=== PATIENT | female | born 1955 | race American Indian/Alaskan Native ===

== ENCOUNTER 2017-07-17 13:20 | Inpatient (IN) | payer OTHER ==
[2017-07-17] MEDS ORDERED: Sodium Chloride 0.9% 1,000 ML IV ONE ×2 (13:49→18:16)
[2017-07-17 14:21] LABS: BASO # 0.1 K/uL (0.0-0.2); BASO % 0.8 % (0.0-2.0); EOS % 0.1 % (0.0-4.0); HEMATOCRIT 40.9 % (34.0-47.0); LYMPH # 2.1 K/uL (1.0-4.3); LYMPH % 14.4 % (20.0-40.0); MEAN CORPUSCULAR HEMOGLOBIN 27.2 pg (27.0-31.0); MEAN CORPUSCULAR HGB CONC 32.8 g/dL (33.0-37.0); MEAN PLATELET VOLUME 9.3 fL (7.2-11.7); MONO # 1.2 K/uL (0.0-0.8); RED CELL DISTRIBUTION WIDTH 15.2 % (11.5-14.5); WHITE BLOOD COUNT 14.6 K/uL (4.8-10.8)
--- NOTE | 2017-07-17 14:26 | RAD ---
HISTORY: SOB COMPARISON: None available. TECHNIQUE: Chest, one view. FINDINGS: Examination limited by habitus. LUNGS: Hazy bilateral lower lobe opacities may reflect atelectasis or infiltrate. Please note that chest x-ray has limited sensitivity for the detection of pulmonary masses. PLEURA: No significant pleural effusion identified. No definite pneumothorax . CARDIOVASCULAR: Heart size appears within normal limits. Ectatic aorta. Atherosclerotic calcifications. OSSEOUS STRUCTURES: Degenerative changes. VISUALIZED UPPER ABDOMEN: Mild elevation of the left hemidiaphragm. OTHER FINDINGS: None. IMPRESSION: Soft tissue attenuation limits evaluation of the lower lobes. Hazy bilateral lower lobe opacities may reflect atelectasis or infiltrate.
[2017-07-17 14:28] LABS: CHLORIDE 99 mmol/L (98-107)
[2017-07-17 14:29] LABS: POTASSIUM 3.5 mmol/L (3.6-5.2); SODIUM 137 mmol/L (132-148)
[2017-07-17 14:31] LABS: GFR AFRICAN-AMERICAN > 60
[2017-07-17 14:32] LABS: ALB/GLOB RATIO 1.3 (1.0-2.1); ALKALINE PHOSPHATASE 116 U/L (38-126); ALT/SGPT 34 U/L (9-52); AST/SGOT 19 U/L (14-36); BILIRUBIN,TOTAL 0.9 mg/dL (0.2-1.3); BLOOD UREA NITROGEN 16 mg/dL (7-17); CALCIUM 9.3 mg/dl (8.6-10.4); CARBON DIOXIDE 25 mmol/L (22-30); GLUCOSE,RANDOM 197 mg/dL (65-105); TOTAL PROTEIN 7.4 g/dL (6.3-8.3)
[2017-07-17 14:33] LABS: ALCOHOL SERUM < 10 mg/dl (0-10); RBC URINE 65 /hpf (0-3); URINE BACTERIA FEW (<OCC); URINE BILIRUBIN NEGATIVE (NEGATIVE); URINE BLOOD 3+ (NEGATIVE); URINE COLOR Yellow (YELLOW); URINE GLUCOSE (UA) NORMAL (Normal); URINE KETONE NEGATIVE (NEGATIVE); URINE LEUKOCYTE ESTERASE NEG Leu/uL (Negative); URINE PROTEIN 2+ mg/dL (NEGATIVE); URINE UROBILINOGEN NORMAL mg/dL (0.2-1.0); WBC URINE 4 /hpf (0-5)
[2017-07-17] MEDS ORDERED: Sodium Chloride 0.9% 1,000 ML ONE (14:55)
[2017-07-17] MEDS ORDERED: cefTRIAXone IV 1 gm in Dextros 50 ML IV ONE (16:24)
[2017-07-17] MEDS ORDERED: Azithromycin 500 MG in Sodium Chloride 0.9% 250 ML IV STA (16:24)
--- NOTE | 2017-07-17 16:32 | C.PDOC ---
History Of Present Illness 61 y/o female presents to ED with c/o headache and cough for 2 days. Patient reports she smokes 1/2 pack per day. Also reports past history of poorly controlled DM. Otherwise, denies chest pain, shortness of breath, nausea, vomiting, diarrhea, or other associated symptoms. Time Seen by Provider: 07/17/17 13:41 Chief Complaint (Nursing): Headache History Per: Patient History/Exam Limitations: no limitations Onset/Duration Of Symptoms: Days (2) Current Symptoms Are (Timing): Still Present Associated Symptoms: denies: Fever, Chills, Chest Pain, Bloody Cough, Dizziness Recent travel outside of the [place]: No Past Medical History Reviewed: Historical Data, Nursing Documentation, Vital Signs Vital Signs: Last Vital Signs Temp 101.0 F H 07/17/17 13:27 Pulse 113 H 07/17/17 13:27 Resp 20 07/17/17 13:27 BP 149/90 07/17/17 13:27 Pulse Ox 92 L 07/17/17 16:32 - Medical History PMH: Anxiety, HTN Family History: States: Unknown Family Hx - Social History Hx Alcohol Use: No Hx Substance Use: No - Immunization History Hx Tetanus Toxoid Vaccination: No Hx Influenza Vaccination: No Hx Pneumococcal Vaccination: No Review Of Systems Except As Marked, All Systems Reviewed And Found Negative. Constitutional: Negative for: Fever, Chills Eyes: Negative for: Vision Change Respiratory: Positive for: Cough. Negative for: Shortness of Breath Gastrointestinal: Negative for: Nausea, Vomiting, Abdominal Pain Skin: Negative for: Rash Neurological: Positive for: Headache. Negative for: Dizziness Physical Exam - Physical Exam Appears: Non-toxic, Other (moderate distress) Skin: Warm, Dry Head: Atraumatic, Normacephalic Eye(s): bilateral: PERRL, EOMI, Other (no photophobia) Oral Mucosa: Moist Neck: Supple (no nuchal rigidity) Chest: Symmetrical Cardiovascular: Rhythm Regular Respiratory: No Rales, No Rhonchi, No Wheezing, Other (dry non-productive cough ; increased breath sounds left side) Gastrointestinal/Abdominal: Soft, No Tenderness, No Guarding, No Rebound Back: Normal Inspection Extremity: Normal ROM, Capillary Refill (< 2 sec.) Neurological/Psych: Oriented x3, Normal Speech, Normal Cognition ED Course And Treatment - Laboratory Results Result Diagrams: 07/17/17 14:16 07/17/17 14:16 Lab Interpretation: Abnormal ECG: Interpreted By Me ECG Rhythm: Sinus Tachycardia ECG Interpretation: Abnormal Rate From EC O2 Sat by Pulse Oximetry: 92 Pulse Ox Interpretation: Abnormal - Radiology CXR: Interpreted by Me CXR Interpretation: Yes: Infiltrates (+ Lingular/LLL PNA) - CT Scan/US CT Chest Other Rad Studies (CT/US): Interpreted By Me, Radiology Report Reviewed (LLL/ Lingular PNA) Progress Note: shivam KELLEY azithro Reevaluation Time: 16:30 Reassessment Condition: Improved - Physician Consult Information Outcome Of Conversation: 1630: d/w Dr. Donis- PMD- ok to Admit Medical Decision Making Medical Decision Making: poorly controlled DM, persistent smoker, LLL/Lingular PNA though pt c/o headache, LOW susp of meningitis as pt without photophobia nor nuchal rigidity. Defer LP at this time. Disposition Doctor Will See Patient In The: Hospital Counseled Patient/Family Regarding: Studies Performed, Diagnosis - Disposition Disposition: HOSPITALIZED Disposition Time: 16:31 Condition: GOOD - Clinical Impression Clinical Impression: Pneumonia - Scribe Statement The provider has reviewed the documentation as recorded by the Scribe SM All medical record entries made by the Scribe were at my direction and personally dictated by me. I have reviewed the chart and agree that the record accurately reflects my personal performance of the history, physical exam, medical decision making, and the department course for this patient. I have also personally directed, reviewed, and agree with the discharge instructions and disposition.
--- NOTE | 2017-07-17 16:35 | CT ---
PROCEDURE: CT chest dated 07/17/2017 HISTORY: Dated 07/17/2017. Cough and fever. Questionable lingular pneumonia. Smoker. COMPARISON: Comparison made with chest radiograph 07/17/2017 Ed 1424 hours. TECHNIQUE: Contiguous axial images were obtained through the chest without intravenous contrast enhancement. Sagittal and coronal reconstructions were performed. Radiation dose (DLP): 774.08 mGy-cm. This CT exam was performed using one or more of the following dose reduction techniques: Automated exposure control, adjustment of the mA and/or kV according to patient size, and/or use of iterative reconstruction technique. FINDINGS: LUNGS: Current study re- demonstrates to better advantage consolidation changes in the region of the inferior segment left upper lobe extending into the lingular region. Bibasilar atelectasis and or scarring also present. MEDIASTINUM: The heart appears mildly enlarged. No significant pericardial effusion. Multiple small to medium-sized mediastinal lymph nodes are present. Evaluation for hilar adenopathy is limited due to the lack of circulating intravenous contrast material. Central airways are midline and patent. There is a small hiatal hernia. Visualized upper abdominal structures unremarkable. PLEURA: No effusion or pneumothorax. BONES: Mild multilevel degenerative spondylosis of the thoracic spine. No acute compression deformities. UPPER ABDOMEN: Visualized upper abdominal structures unremarkable. OTHER FINDINGS: None. IMPRESSION: Left upper lobe infiltrate extending inferiorly into the lingular region. Findings may represent pneumonia. Bibasilar atelectasis and/or scarring. No evidence of effusion or pneumothorax.
[2017-07-17] MEDS ORDERED: cefTRIAXone IV 1 gm in Dextros 50 ML IVPB ONE (16:45)
[2017-07-17] MEDS ORDERED: Azithromycin 500mg/250ML NS 500 MG/250 ML BAG IVPB ONE (16:45)
[2017-07-17] MEDS ORDERED: LORAZEPAM PO PRN (17:29)
[2017-07-17] MEDS ORDERED: Sodium Chloride 0.45% 1,000 ML IV SCH (17:45)
[2017-07-17 18:00] LABS: ABG ALLEN TEST POS; DRAW SITE RRADIAL; HHB 10.7 % (0.0-5.0); METHEMOGLOBIN 1.3 % (0.0-3.0)
[2017-07-17] MEDS ORDERED: Potassium Chloride 20 mEq ER Tab PO ONE (18:00)
[2017-07-17] MEDS ORDERED: LORAZEPAM PO SCH (18:00)
--- NOTE | 2017-07-17 18:21 | PCM.RRT ---
<Briana Dahl V - Last Filed: 07/17/17 18:50> GROUP RESERVATIONS COORDINATOR Nurses Assessment - Situation GROUP RESERVATIONS COORDINATOR Responder Arrival Time: 18:10 GROUP RESERVATIONS COORDINATOR Reason for Call: Tachycardia, O2 Saturation below 90% GROUP RESERVATIONS COORDINATOR Called By: RN - IV IV Inserted during GROUP RESERVATIONS COORDINATOR?: No New IV Insertion Tolerance: Good - Respiratory Oxygen Delivery Method: Venturi Mask Received Nebulizer Treatments: No Was the Patient Ventilated with Bag/Mask 100% O2?: No Secretions Suctioned?: No Was the Patient Intubated?: No Was the Patient Placed on a Ventilator?: No - Diagnostic Test Ordered EKG: No (sinus tachycardia (earlier)) Chest X-Ray: No CT Scan: No (left upper pneumonia) - Stat Labs Ordered GROUP RESERVATIONS COORDINATOR Stat Labs Ordered: CBC, LACTIC ACID GROUP RESERVATIONS COORDINATOR Other Labs Ordered: Urine culture; CMP, VBG w shock CPR started during GROUP RESERVATIONS COORDINATOR?: No - [place] Coma Scale Coma Scale Eye Opening: To verbal stimuli - Sepsis Screen Part 1 Sepsis Screen Part 1: Temperature over 100.6F - Sepsis Screen Part 2 Sepsis Screen Part 2: WBC over 12,000 - Time GROUP RESERVATIONS COORDINATOR Ended Time GROUP RESERVATIONS COORDINATOR Ended: 18:41 - Recommendations 5) GROUP RESERVATIONS COORDINATOR Level of Care Recommendations: Transfer to Telemetry Notifications: Attending Physician, Family or Designated Caregiver I.Reason for GROUP RESERVATIONS COORDINATOR - A) Acute Change in Patient: (Select all that apply): Staff member or family is worried about patient, Acute change in SpO2 less (84%) - Neurological Status (Select all that apply): Alert, Responsive, Lethargic (mild; gotten Ativan and Tramadol in Ed) - Respiratory Oxygen Delivery Method: Venturi Mask @% - Constitutional Appears: Non-toxic, In Acute Distress - Head Head Exam: NORMAL INSPECTION - Eyes Eye Exam: EOMI - Respiratory Exam Respiratory Exam: Decreased Breath Sounds, Wheezes. absent: Stridor - Cardiovascular Exam Cardiovascular Exam: Tachycardia, +S1, +S2 - GI/Abdominal Exam GI & Abdominal Exam: Soft, Normal Bowel Sounds. absent: Distended, Firm, Guarding, Rigid, Tenderness, Rebound - Neurological Exam Neurological Exam: Alert, Awake, Oriented x3 (X1; speaks in Thai) Plan - Assessment of Findings&Treatment Plan Accompanied colleague Dr. Engel to GROUP RESERVATIONS COORDINATOR at 6:05PM. Ronnie Castelan ( ) Grandson: Everardo Tracey ([phone]) Past Medical Hx: Diabetes, Emphysema, Hypertension, denies stroke, denies [place] Grandchildren report patient had recent hospitalization about a year ago for pneumonia. Per discussion with granddaughter, her ambulance brought her in shortness of breathe and chest pain. in ED, patient received Rocephin and Azithromycin IV, given a fluid bolus in the ED, and dose of Ativan 1mg PO X1 and dose of Tramadol. VS: T: 103, BP: 167/78, SpO2:84 HR: 120 (on nasal cannula)-->oxygen improved to 97% on venti mask. General; Awake, alert, oriented, mild lethargic Heart: S1, S2, tachycardia Lung: Wheezing on exam, no observed stridor Abdomen: soft nontender, obese habitus reviewed CT chest: left upper lobe pneumonia EKG; sinus tachycardia in the GROUP RESERVATIONS COORDINATOR: 1 L fluid bolus ordered, Solumedrol 125mg IV X1, VBG shock: lactate 1.0-->code sepsis not called given normal lactate; order f/u lactate in 3 hours , ordered for CBC and CMP; on VBG: potassium is 2.5-->ordered for 2 additional KCL riders, and IV fluids 1/2 NS and KCL 20meEq 100cc/hr. Ordered for Monet, intake and output, and patient to be moved to telemetry for further monitoring. held Ativan/Texapam. My colleague, Dr Engel spoke with patient PMD: Dr. Donis who is aware and will see the patient. Put in order for telemetry for further monitoring. Discussed with patient's primary who is aware. <Jonn Engel - Last Filed: 07/17/17 19:04> Attending/Attestation - Attestation I have personally seen and examined this patient.: Yes I have fully participated in the care of the patient.: Yes I have reviewed all pertinent clinical information, including history, physical exam and plan: Yes Notes (Text): 07/17/17 19:00 Hospitalist: Patient was seen and examined by me. The GROUP RESERVATIONS COORDINATOR was called after it was noted that the SpO2 was low. The patient is currently admitted for pneumonia of the left upper lobe and it appears that while down in the ER also received pain medication as well as benzodiazipine. She was on a nonrebreather and then changed over to a venti mask with an improved SpO2 in the 95 to 96% area A vBG shock panel was done with a pH of 7.6 as well as a lactate of 1.0. Of note was a low K so we gave K replacement. On exam she does have some wheezing. Per discussion with family at bedside patient does smoke - for a long time. So will give solumedrol 125mg x1 dose as well. I spoke with the family at bedside as well as called the patient's PMD Patient to be moved to teleemtry for additional monitoring thank you Jonn Engel
[2017-07-17 18:28] LABS: VENOUS BLOOD GAS BASE EXCESS -6.6 mmol/L (0.0-2.0); VENOUS BLOOD GAS PCO2 27 mmHg (40-60)
[2017-07-17] MEDS ORDERED: POTASSIUM CH IV SCH (18:45)
[2017-07-17] MEDS ORDERED: D5W IV SCH (18:45)
[2017-07-17] MEDS ORDERED: SODIUM CHLORIDE IV SCH (18:45)
[2017-07-17 18:48] LABS: BASO # 0.1 K/uL (0.0-0.2); BASO % 0.4 % (0.0-2.0); HEMATOCRIT 37.4 % (34.0-47.0); LYMPH # 1.9 K/uL (1.0-4.3); LYMPH % 11.9 % (20.0-40.0); MEAN CORPUSCULAR HEMOGLOBIN 27.5 pg (27.0-31.0); MEAN CORPUSCULAR HGB CONC 33.5 g/dL (33.0-37.0); MEAN PLATELET VOLUME 9.5 fL (7.2-11.7); MONO # 1.5 K/uL (0.0-0.8); MONO % 9.1 % (0.0-10.0); WHITE BLOOD COUNT 16.3 K/uL (4.8-10.8)
[2017-07-17 18:55] LABS: CHLORIDE 101 mmol/L (98-107); SODIUM 133 mmol/L (132-148)
[2017-07-17 18:56] LABS: POTASSIUM 3.4 mmol/L (3.6-5.2)
[2017-07-17 18:58] LABS: ALB/GLOB RATIO 1.3 (1.0-2.1); ALKALINE PHOSPHATASE 102 U/L (38-126); ALT/SGPT 26 U/L (9-52); AST/SGOT 20 U/L (14-36); BILIRUBIN,TOTAL 0.8 mg/dL (0.2-1.3); BLOOD UREA NITROGEN 15 mg/dL (7-17); CALCIUM 8.4 mg/dl (8.6-10.4); CARBON DIOXIDE 23 mmol/L (22-30); GFR AFRICAN-AMERICAN > 60; GLUCOSE,RANDOM 148 mg/dL (65-105); TOTAL PROTEIN 6.9 g/dL (6.3-8.3)
[2017-07-17] MEDS: Albuterol-Ipratrop 3 mg / 0.5 (3 ml) UD INH SCH (19:29)
[2017-07-17] MEDS: Sodium Chloride 0.45% 1,000 ML IV SCH (20:20)
[2017-07-17] MEDS: (Novolin R) Insulin Human Regular 100 units/ml vial SC SCH (21:36)
[2017-07-17] MEDS ORDERED: TEMAZEPAM PO SCH (22:00)
--- NOTE | 2017-07-18 02:43 | HP ---
CHIEF COMPLAINT: Shortness of breath and headache. HISTORY OF PRESENT ILLNESS: This is a 61-year-old -[place] female well-known to me with history of diabetes, hypertension, hyperlipidemia, COPD. She smokes, she has been smoking for over 40 years, she still smokes caze-[id number]-zaa-day, and since Sunday she has been having cough, congestion, fever, headache, chills, rigors, body aches, tiredness, anorexia, malaise and fatigue. Her chest pain increases with coughing on the left side of the chest wall and according to her, she has blood in the sputum. She is weak, dizzy, tired and she has anorexia and malaise. The patient denies any polyuria, polydipsia. She denies any hematuria, pyuria. She denies any history of trauma or fall, loss of consciousness. She denies any seizure-like activity. She has generalized weakness. She denies any sneezing, itchy eyes, itchy nose. She denies any joint pains. She has insomnia. She has anxiety and at times she feels anxious and depressed. There is no history of joint pain. ALLERGIES: UNKNOWN. CURRENT MEDICATIONS AT HOME: Are; Ativan, Restoril, metformin, Dyazide, aspirin, gabapentin, Zocor, and Protonix. PAST MEDICAL HISTORY: COPD, diabetes, hypertension, hyperlipidemia, anxiety, depression and insomnia. SOCIAL HISTORY: Smokes. She denies drinking. FAMILY HISTORY: Negative for premature coronary artery disease. PHYSICAL EXAMINATION: GENERAL: An elderly female, in distress. She is weak, tired. VITAL SIGNS: Blood pressure is 136/83, pulse 108, respiratory rate 22 and temperature 102.1. SKIN: Dry/poor turgor. HEENT: Atraumatic and normocephalic. Negative pallor. Negative jaundice. Extraocular movements are intact. NECK: Supple. Flat neck veins. No JVD, no lymph node, no thyromegaly, no carotid bruit. CHEST: Chest wall bilateral symmetrical expansion. LUNGS: There are fine crackles in the entire left lung. ABDOMEN: Soft, nontender. Bowel sounds are positive. EXTREMITIES: No clubbing, cyanosis or edema. CENTRAL NERVOUS SYSTEM: Awake, alert, and oriented x3. Cranial nerves II through XII are normal. Power is 5/5 x4. ASSESSMENT: 1. Pneumonia, left-sided. 2. Dehydration. 3. Hypertension. 4. Diabetes. 5. Chronic obstructive pulmonary disease. PLAN: Admit. Detailed orders written. Seen and examined. Zeyad Donis MD
[2017-07-18] MEDS: Levothyroxine 125 MCG TAB PO SCH (05:51)
[2017-07-18] MEDS: guaiFENesin DM 200 mg-20 mg/10 ml UD PO PRN (05:54)
[2017-07-18 06:33] LABS: BASO # 0.1 K/uL (0.0-0.2); BASO % 0.7 % (0.0-2.0); HEMATOCRIT 37.7 % (34.0-47.0); LYMPH # 1.2 K/uL (1.0-4.3); LYMPH % 7.5 % (20.0-40.0); MEAN CELL VOLUME 83.8 fL (81.0-99.0); MEAN CORPUSCULAR HEMOGLOBIN 27.5 pg (27.0-31.0); MEAN CORPUSCULAR HGB CONC 32.8 g/dL (33.0-37.0); MEAN PLATELET VOLUME 10.4 fL (7.2-11.7); MONO # 0.5 K/uL (0.0-0.8); MONO % 3.4 % (0.0-10.0); PLATELET COUNT 170 K/uL (130-400); RED CELL DISTRIBUTION WIDTH 15.4 % (11.5-14.5)
[2017-07-18] MEDS: Albuterol-Ipratrop 3 mg / 0.5 (3 ml) UD INH SCH ×3 (07:52→19:16)
[2017-07-18 07:54] LABS: CHLORIDE 106 mmol/L (98-107); SODIUM 136 mmol/L (132-148)
[2017-07-18 07:56] LABS: THYROID STIMULATING HORMONE 0.11 mIU/L (0.46-4.68)
[2017-07-18 07:57] LABS: BLOOD UREA NITROGEN 17 mg/dL (7-17); CALCIUM 8.2 mg/dl (8.6-10.4); CARBON DIOXIDE 21 mmol/L (22-30); GFR AFRICAN-AMERICAN > 60; GLUCOSE,RANDOM 239 mg/dL (65-105)
[2017-07-18] MEDS: (Novolin R) Insulin Human Regular 100 units/ml vial SC SCH ×5 (08:31→21:59)
[2017-07-18 08:55] LABS: NEUTROPHIL 86 % (50-75); TOTAL CELLS COUNTED 100
[2017-07-18] MEDS: Sodium Chloride 0.45% 1,000 ML IV SCH ×2 (09:16→21:15)
[2017-07-18] MEDS: Enoxaparin 40 mg Syringe SC SCH (09:16)
[2017-07-18] MEDS ORDERED: METFORMIN HYDROCHLORIDE PO SCH (10:00)
[2017-07-18] MEDS ORDERED: Azithromycin 500 MG in Sodium Chloride 0.9% 250 ML IVPB SCH (10:00)
--- NOTE | 2017-07-18 15:25 | CP.PCM.CON ---
History of Present Illness - History of Present Illness History of Present Illness: Reason for consultation: Fever, shortness of breath and cough 61-year-old female with known history of smoking presented to emergency room with 3 day history of cough associated with fever and chills/headache. Patient stated she had EKG done for left sided chest discomfort recently also. CAT scan of the chest consistent with left upper lung infiltrate. Review of Systems - Review of Systems All systems: reviewed and no additional remarkable complaints except (Shortness of breath, cough and chills) Past Patient History - Past Medical History & Family History Past Medical History?: Yes - Past Social History Smoking Status: Light Smoker < 10 Cigarettes Daily - CARDIAC Hx Hypertension: Yes - ENDOCRINE/METABOLIC Hx Diabetes Mellitus Type 2: Yes - MUSCULOSKELETAL/RHEUMATOLOGICAL Hx Falls: No - PSYCHIATRIC Hx Anxiety: Yes Hx Substance Use: No - SURGICAL HISTORY Hx Surgeries: Yes Hx Hysterectomy: Yes - ANESTHESIA Hx Anesthesia: Yes Hx Anesthesia Reactions: No Meds Allergies/Adverse Reactions: Allergies Allergy/AdvReac Type Severity Reaction Status Date / Time Penicillins Allergy Verified 07/17/17 13:30 - Medications Medications: Current Medications Acetaminophen (Tylenol 325mg Tab) 650 mg PO Q6 PRN PRN Reason: Fever >100.4 F Last Admin: 07/17/17 19:04 Dose: 650 mg Albuterol/Ipratropium (Duoneb 3 Mg/0.5 Mg (3 Ml) Ud) 3 ml INH RQ6 [facility] Last Admin: 07/18/17 13:17 Dose: 3 ml Aspirin (Ecotrin) 81 mg PO DAILY [facility] Last Admin: 07/18/17 09:16 Dose: 81 mg Diphenhydramine HCl (Benadryl) 25 mg PO ONCE ONE Stop: 07/18/17 15:31 Enoxaparin Sodium (Lovenox) 40 mg SC DAILY [facility] Last Admin: 07/18/17 09:16 Dose: Not Given Guaifenesin/Dextromethorphan (Robitussin Dm) 10 ml PO Q4H PRN PRN Reason: Cough and congestion Last Admin: 07/18/17 05:54 Dose: 10 ml Sodium Chloride (Sodium Chloride 0.45%) 1,000 mls @ 80 mls/hr IV .[id number] [facility] Last Admin: 07/18/17 09:16 Dose: 80 mls/hr Ciprofloxacin (Cipro 200mg/100ml D5w) 100 mls @ 67 mls/hr IVPB Q12H [facility] Insulin Human Regular (Novolin R) 0 unit SC ACHS [facility] PRN Reason: Protocol Last Admin: 07/18/17 12:43 Dose: 4 unit Levothyroxine Sodium (Synthroid) 125 mcg PO DAILY@0630 [facility] Last Admin: 07/18/17 05:51 Dose: 125 mcg Metformin HCl (Glucophage) 500 mg PO BID [facility] Last Admin: 07/18/17 09:16 Dose: 500 mg Pantoprazole Sodium (Protonix Inj) 40 mg IVP DAILY [facility] Last Admin: 07/18/17 09:15 Dose: 40 mg Pneumococcal Polyvalent Vaccine (Pneumovax 23 Vaccine) 0.5 ml IM .ONCE ONE Stop: 07/19/17 10:01 Physical Exam - Head Exam Head Exam: ATRAUMATIC, NORMOCEPHALIC - Eye Exam Eye Exam: Normal appearance - ENT Exam ENT Exam: Mucous Membranes Moist - Respiratory Exam Respiratory Exam: Decreased Breath Sounds - Cardiovascular Exam Cardiovascular Exam: REGULAR RHYTHM - GI/Abdominal Exam GI & Abdominal Exam: Normal Bowel Sounds, Soft - Extremities Exam Extremities exam: Positive for: normal inspection - Neurological Exam Neurological exam: Alert, Oriented x3 Results - Vital Signs Recent Vital Signs: Last Vital Signs Temp 98 F 07/18/17 07:00 Pulse 79 07/18/17 07:00 Resp 20 07/18/17 07:00 BP 131/78 07/18/17 07:00 Pulse Ox 98 07/18/17 07:00 - Labs Result Diagrams: 07/18/17 06:18 07/18/17 06:18 Labs: Laboratory Results - last 24 hr 07/17/17 07/17/17 07/17/17 17:55 18:20 18:23 WBC RBC Hgb Hct MCV MCH MCHC RDW Plt Count MPV Neut % (Auto) Lymph % (Auto) [place] % (Auto) Eos % (Auto) Baso % (Auto) Neut # Lymph # [place] # Eos # Baso # Neutrophils % (Manual) Band Neutrophils % Lymphocytes % (Manual) Monocytes % (Manual) Platelet Estimate RBC Morphology Puncture Site Rradial pCO2 28 L pO2 46 L 31 HCO3 24.3 ABG pH 7.50 H ABG Total CO2 22.7 ABG O2 Saturation 88.8 L ABG Base Excess -0.4 ABG Hemoglobin 12.4 ABG Carboxyhemoglobin 3.0 H POC ABG HHb (Measured) 10.7 H ABG Methemoglobin 1.3 Fadi Test Pos VBG pH 7.40 VBG pCO2 27 L VBG HCO3 18.8 VBG Total CO2 17.5 L VBG O2 Sat (Calc) 68.5 H VBG Base Excess -6.6 L VBG Potassium 2.5 L* A-a O2 Difference 69.0 Respiratory Index 1.5 Hgb O2 Saturation 85.0 L Sodium 143.0 Chloride 115.0 H Glucose 110 H Lactate 1.0 FiO2 21.0 Crit Value Called To Dr annalee moya Crit Value Called By Carmella prado Crit Value Read Back Y Blood Gas Notified Time 1845 Potassium Carbon Dioxide Anion Gap BUN Creatinine Est GFR ( Amer) Est GFR (Non-Af Amer) POC Glucose (mg/dL) 171 H Random Glucose Hemoglobin A1c Lactic Acid Calcium Total Bilirubin AST ALT Alkaline Phosphatase Total Protein Albumin Globulin Albumin/Globulin Ratio TSH 3rd Generation Venous Blood Potassium 2.5 L* 07/17/17 07/17/17 07/17/17 18:41 18:41 21:33 WBC 16.3 H RBC 4.56 Hgb 12.5 Hct 37.4 MCV 82.0 MCH 27.5 MCHC 33.5 RDW 15.0 H Plt Count 182 MPV 9.5 Neut % (Auto) 78.6 H Lymph % (Auto) 11.9 L [place] % (Auto) 9.1 Eos % (Auto) 0.0 Baso % (Auto) 0.4 Neut # 12.8 H Lymph # 1.9 [place] # 1.5 H Eos # 0.0 Baso # 0.1 Neutrophils % (Manual) Band Neutrophils % Lymphocytes % (Manual) Monocytes % (Manual) Platelet Estimate RBC Morphology Puncture Site pCO2 pO2 HCO3 ABG pH ABG Total CO2 ABG O2 Saturation ABG Base Excess ABG Hemoglobin ABG Carboxyhemoglobin POC ABG HHb (Measured) ABG Methemoglobin Fadi Test VBG pH VBG pCO2 VBG HCO3 VBG Total CO2 VBG O2 Sat (Calc) VBG Base Excess VBG Potassium A-a O2 Difference Respiratory Index Hgb O2 Saturation Sodium 133 Chloride 101 Glucose Lactate FiO2 Crit Value Called To Crit Value Called By Crit Value Read Back Blood Gas Notified Time Potassium 3.4 L Carbon Dioxide 23 Anion Gap 12 BUN 15 Creatinine 1.1 Est GFR ( Amer) > 60 Est GFR (Non-Af Amer) 50 POC Glucose (mg/dL) 196 H Random Glucose 148 H Hemoglobin A1c Lactic Acid Calcium 8.4 L Total Bilirubin 0.8 AST 20 ALT 26 Alkaline Phosphatase 102 Total Protein 6.9 Albumin 3.8 Globulin 3.1 Albumin/Globulin Ratio 1.3 TSH 3rd Generation Venous Blood Potassium 07/17/17 07/18/17 07/18/17 21:40 06:09 06:18 WBC 16.0 H RBC 4.50 Hgb 12.4 Hct 37.7 MCV 83.8 MCH 27.5 MCHC 32.8 L RDW 15.4 H Plt Count 170 MPV 10.4 Neut % (Auto) 88.4 H Lymph % (Auto) 7.5 L [place] % (Auto) 3.4 Eos % (Auto) 0.0 Baso % (Auto) 0.7 Neut # 14.1 H Lymph # 1.2 [place] # 0.5 Eos # 0.0 Baso # 0.1 Neutrophils % (Manual) 86 H Band Neutrophils % 2 Lymphocytes % (Manual) 10 L Monocytes % (Manual) 2 Platelet Estimate Normal RBC Morphology Normal Puncture Site pCO2 pO2 HCO3 ABG pH ABG Total CO2 ABG O2 Saturation ABG Base Excess ABG Hemoglobin ABG Carboxyhemoglobin POC ABG HHb (Measured) ABG Methemoglobin Fadi Test VBG pH VBG pCO2 VBG HCO3 VBG Total CO2 VBG O2 Sat (Calc) VBG Base Excess VBG Potassium A-a O2 Difference Respiratory Index Hgb O2 Saturation Sodium Chloride Glucose Lactate FiO2 Crit Value Called To Crit Value Called By Crit Value Read Back Blood Gas Notified Time Potassium Carbon Dioxide Anion Gap BUN Creatinine Est GFR ( Amer) Est GFR (Non-Af Amer) POC Glucose (mg/dL) 250 H Random Glucose Hemoglobin A1c Lactic Acid 0.8 Calcium Total Bilirubin AST ALT Alkaline Phosphatase Total Protein Albumin Globulin Albumin/Globulin Ratio TSH 3rd Generation Venous Blood Potassium 07/18/17 07/18/17 07/18/17 06:18 06:18 11:52 WBC RBC Hgb Hct MCV MCH MCHC RDW Plt Count MPV Neut % (Auto) Lymph % (Auto) [place] % (Auto) Eos % (Auto) Baso % (Auto) Neut # Lymph # [place] # Eos # Baso # Neutrophils % (Manual) Band Neutrophils % Lymphocytes % (Manual) Monocytes % (Manual) Platelet Estimate RBC Morphology Puncture Site pCO2 pO2 HCO3 ABG pH ABG Total CO2 ABG O2 Saturation ABG Base Excess ABG Hemoglobin ABG Carboxyhemoglobin POC ABG HHb (Measured) ABG Methemoglobin Fadi Test VBG pH VBG pCO2 VBG HCO3 VBG Total CO2 VBG O2 Sat (Calc) VBG Base Excess VBG Potassium A-a O2 Difference Respiratory Index Hgb O2 Saturation Sodium 136 Chloride 106 Glucose Lactate FiO2 Crit Value Called To Crit Value Called By Crit Value Read Back Blood Gas Notified Time Potassium 4.0 Carbon Dioxide 21 L Anion Gap 13 BUN 17 Creatinine 1.0 Est GFR ( Amer) > 60 Est GFR (Non-Af Amer) 56 POC Glucose (mg/dL) 305 H Random Glucose 239 H Hemoglobin A1c 7.5 H Lactic Acid Calcium 8.2 L Total Bilirubin AST ALT Alkaline Phosphatase Total Protein Albumin Globulin Albumin/Globulin Ratio TSH 3rd Generation 0.11 L Venous Blood Potassium Assessment & Plan (1) Pneumonia Status: Acute Comment: CAT scan of the chest consistent with left upper lung infiltrate extending into the lingula. Patient with long history of smoking. IV antibiotics. If no resolution will consider bronchoscopy. Culture and sensitivity
[2017-07-18] MEDS ORDERED: Ciprofloxacin 200mg/100ml D5W 100 ML IVPB SCH (15:30)
[2017-07-18] MEDS: Aztreonam 1 GM in Sodium Chloride 0.9% 100 ML IVPB SCH ×2 (17:00→22:54)
[2017-07-18] MEDS: Azithromycin 500 MG in Sodium Chloride 0.9% 250 ML IVPB SCH (17:01)
--- NOTE | 2017-07-18 23:30 | CP.PCM.PN ---
Subjective - Date & Time of Evaluation Date of Evaluation: 07/18/17 - Subjective Subjective: NO FEVER, MORE ALERT, FEELS BETTER Objective - Vital Signs/Intake and Output Vital Signs (last 24 hours): Temp Pulse Resp BP Pulse Ox 97.6 F 89 20 145/83 97 07/18/17 15:00 07/18/17 20:30 07/18/17 15:00 07/18/17 20:30 07/18/17 15:00 Intake and Output: 07/18/17 07/19/17 18:59 06:59 Intake Total 820 1150 Output Total 300 Balance 520 1150 - Medications Medications: Current Medications Acetaminophen (Tylenol 325mg Tab) 650 mg PO Q6 PRN PRN Reason: Fever >100.4 F Last Admin: 07/17/17 19:04 Dose: 650 mg Albuterol/Ipratropium (Duoneb 3 Mg/0.5 Mg (3 Ml) Ud) 3 ml INH RQ6 [facility] Last Admin: 07/18/17 19:16 Dose: 3 ml Aspirin (Ecotrin) 81 mg PO DAILY [facility] Last Admin: 07/18/17 09:16 Dose: 81 mg Enoxaparin Sodium (Lovenox) 40 mg SC DAILY [facility] Last Admin: 07/18/17 09:16 Dose: Not Given Guaifenesin/Dextromethorphan (Robitussin Dm) 10 ml PO Q4H PRN PRN Reason: Cough and congestion Last Admin: 07/18/17 05:54 Dose: 10 ml Sodium Chloride (Sodium Chloride 0.45%) 1,000 mls @ 80 mls/hr IV .[id number] [facility] Last Admin: 07/18/17 21:15 Dose: Not Given Aztreonam 1 gm/ Sodium (Chloride) 100 mls @ 200 mls/hr IVPB Q8H [facility] Last Admin: 07/18/17 22:54 Dose: 200 mls/hr Azithromycin 500 mg/ Sodium (Chloride) 250 mls @ 250 mls/hr IVPB DAILY [facility] Last Admin: 07/18/17 17:01 Dose: 250 mls/hr Insulin Human Regular (Novolin R) 0 unit SC ACHS [facility] PRN Reason: Protocol Last Admin: 07/18/17 21:59 Dose: Not Given Levothyroxine Sodium (Synthroid) 125 mcg PO DAILY@0630 [facility] Last Admin: 07/18/17 05:51 Dose: 125 mcg Metformin HCl (Glucophage) 500 mg PO BID [facility] Last Admin: 07/18/17 17:02 Dose: 500 mg Pantoprazole Sodium (Protonix Inj) 40 mg IVP DAILY [facility] Last Admin: 07/18/17 09:15 Dose: 40 mg Pneumococcal Polyvalent Vaccine (Pneumovax 23 Vaccine) 0.5 ml IM .ONCE ONE Stop: 07/19/17 10:01 - Labs Labs: 07/18/17 06:18 07/18/17 06:18 - Constitutional Appears: Non-toxic, No Acute Distress - Head Exam Head Exam: ATRAUMATIC, NORMAL INSPECTION, NORMOCEPHALIC - Eye Exam Eye Exam: EOMI, Normal appearance Pupil Exam: NORMAL ACCOMODATION - ENT Exam ENT Exam: Mucous Membranes Moist, Normal Exam, Normal Oropharynx, TM's Normal Bilaterally - Respiratory Exam Respiratory Exam: Decreased Breath Sounds, Rales - Cardiovascular Exam Cardiovascular Exam: REGULAR RHYTHM, +S1, +S2 - GI/Abdominal Exam GI & Abdominal Exam: Soft, Normal Bowel Sounds - Rectal Exam Rectal Exam: NORMAL INSPECTION - Extremities Exam Extremities Exam: Normal Capillary Refill - Neurological Exam Neurological Exam: Alert, Awake, CN II-XII Intact, Normal Gait, Oriented x3 Neuro motor strength exam: Left Upper Extremity: 5, Right Upper Extremity: 5, Left Lower Extremity: 5, Right Lower Extremity: 5 - Psychiatric Exam Psychiatric exam: Normal Mood - Skin Skin Exam: Intact Assessment and Plan (1) COPD exacerbation Status: Acute (2) Hypertension Status: Chronic (3) Diabetes mellitus Status: Chronic (4) Pneumonia Status: Acute
[2017-07-19] MEDS: Albuterol-Ipratrop 3 mg / 0.5 (3 ml) UD INH SCH ×4 (01:39→19:04)
[2017-07-19] MEDS: Aztreonam 1 GM in Sodium Chloride 0.9% 100 ML IVPB SCH ×3 (06:56→23:48)
[2017-07-19] MEDS: Sodium Chloride 0.45% 1,000 ML IV SCH (06:57)
[2017-07-19] MEDS: guaiFENesin DM 200 mg-20 mg/10 ml UD PO PRN (07:03)
[2017-07-19] MEDS: Levothyroxine 125 MCG TAB PO SCH (07:03)
[2017-07-19 07:27] LABS: BASO # 0.1 K/uL (0.0-0.2); BASO % 0.5 % (0.0-2.0); EOS % 0.2 % (0.0-4.0); HEMATOCRIT 33.2 % (34.0-47.0); LYMPH # 2.8 K/uL (1.0-4.3); LYMPH % 18.4 % (20.0-40.0); MEAN CORPUSCULAR HEMOGLOBIN 27.4 pg (27.0-31.0); MEAN CORPUSCULAR HGB CONC 33.1 g/dL (33.0-37.0); MONO # 1.1 K/uL (0.0-0.8); MONO % 7.1 % (0.0-10.0); NRBC % 0.1 % (0.0-2.0); RED CELL DISTRIBUTION WIDTH 15.2 % (11.5-14.5); WHITE BLOOD COUNT 15.1 K/uL (4.8-10.8)
[2017-07-19 07:59] LABS: BLOOD UREA NITROGEN 18 mg/dL (7-17); CALCIUM 8.8 mg/dl (8.6-10.4); CARBON DIOXIDE 24 mmol/L (22-30); CHLORIDE 106 mmol/L (98-107); GFR AFRICAN-AMERICAN > 60; GLUCOSE,RANDOM 143 mg/dL (65-105); POTASSIUM 3.8 mmol/L (3.6-5.2); SODIUM 140 mmol/L (132-148)
[2017-07-19] MEDS: (Novolin R) Insulin Human Regular 100 units/ml vial SC SCH ×4 (08:35→21:48)
[2017-07-19] MEDS: Azithromycin 500 MG in Sodium Chloride 0.9% 250 ML IVPB SCH (09:14)
[2017-07-19] MEDS: Enoxaparin 40 mg Syringe SC SCH ×2 (09:14→09:19)
[2017-07-19] MEDS ORDERED: Pneumococcal 23-Valent Vaccine IM ONE (10:00)
--- NOTE | 2017-07-19 15:31 | CP.PCM.PN ---
Subjective - Date & Time of Evaluation Date of Evaluation: 07/19/17 Time of Evaluation: 10:30 - Subjective Subjective: patient seen and examined. Cough and shortness of breath improving Afebrile Denies any chest pain Objective - Vital Signs/Intake and Output Vital Signs (last 24 hours): Temp Pulse Resp BP Pulse Ox 98.4 F 80 18 158/89 H 97 07/19/17 07:50 07/19/17 10:37 07/19/17 07:50 07/19/17 07:50 07/19/17 07:50 Intake and Output: 07/19/17 07/19/17 06:59 18:59 Intake Total 2030 Balance 2030 - Medications Medications: Current Medications Acetaminophen (Tylenol 325mg Tab) 650 mg PO Q6 PRN PRN Reason: Fever >100.4 F Last Admin: 07/17/17 19:04 Dose: 650 mg Albuterol/Ipratropium (Duoneb 3 Mg/0.5 Mg (3 Ml) Ud) 3 ml INH RQ6 [facility] Last Admin: 07/19/17 14:06 Dose: 3 ml Aspirin (Ecotrin) 81 mg PO DAILY [facility] Last Admin: 07/19/17 09:14 Dose: 81 mg Enoxaparin Sodium (Lovenox) 40 mg SC DAILY [facility] Last Admin: 07/19/17 09:19 Dose: Not Given Guaifenesin/Dextromethorphan (Robitussin Dm) 10 ml PO Q4H PRN PRN Reason: Cough and congestion Last Admin: 07/19/17 07:03 Dose: 10 ml Aztreonam 1 gm/ Sodium (Chloride) 100 mls @ 200 mls/hr IVPB Q8H [facility] Last Admin: 07/19/17 15:22 Dose: 200 mls/hr Azithromycin 500 mg/ Sodium (Chloride) 250 mls @ 250 mls/hr IVPB DAILY [facility] Last Admin: 07/19/17 09:14 Dose: 250 mls/hr Insulin Human Regular (Novolin R) 0 unit SC ACHS [facility] PRN Reason: Protocol Last Admin: 07/19/17 12:23 Dose: Not Given Levothyroxine Sodium (Synthroid) 125 mcg PO DAILY@0630 [facility] Last Admin: 07/19/17 07:03 Dose: 125 mcg Lorazepam (Ativan) 1 mg PO BID PRN PRN Reason: Anxiety Last Admin: 07/19/17 15:28 Dose: 1 mg Metformin HCl (Glucophage) 500 mg PO BID [facility] Last Admin: 07/19/17 09:13 Dose: 500 mg Pantoprazole Sodium (Protonix Inj) 40 mg IVP DAILY [facility] Last Admin: 07/19/17 09:14 Dose: 40 mg - Labs Labs: 07/19/17 07:16 07/19/17 07:16 - Head Exam Head Exam: ATRAUMATIC, NORMOCEPHALIC - Eye Exam Eye Exam: Normal appearance - ENT Exam ENT Exam: Mucous Membranes Moist - Neck Exam Neck Exam: Full ROM, Normal Inspection - Cardiovascular Exam Cardiovascular Exam: REGULAR RHYTHM - GI/Abdominal Exam GI & Abdominal Exam: Soft, Normal Bowel Sounds - Extremities Exam Extremities Exam: Full ROM, Normal Inspection - Neurological Exam Neurological Exam: Alert, Oriented x3 Assessment and Plan (1) Pneumonia Assessment & Plan: continue IV antibiotics and followup chest x-ray Continue nebulizer treatment Patient advised to stop smoking Status: Acute
--- NOTE | 2017-07-19 18:22 | CARD ---
APPROVED REPORT EKG Measurement Heart [id number] <Conclusion> Sinus tachycardia Cannot rule out Anterior infarct, age undetermined Abnormal ECG
[2017-07-19] MEDS: hydroCHLOROthiazide-Triamterene 25 mg-37.5 mg Cap UD PO SCH (18:31)
--- NOTE | 2017-07-19 22:40 | CP.PCM.PN ---
Subjective - Date & Time of Evaluation Date of Evaluation: 07/19/17 - Subjective Subjective: FEELS BETTER, NO FEVER, NO SOB, COUGH PRESENT, NO NAUSEA Objective - Vital Signs/Intake and Output Vital Signs (last 24 hours): Temp Pulse Resp BP Pulse Ox 97.5 F L 77 20 158/85 H 96 07/19/17 16:12 07/19/17 16:12 07/19/17 16:12 07/19/17 16:12 07/19/17 16:12 - Medications Medications: Current Medications Acetaminophen (Tylenol 325mg Tab) 650 mg PO Q6 PRN PRN Reason: Fever >100.4 F Last Admin: 07/17/17 19:04 Dose: 650 mg Albuterol/Ipratropium (Duoneb 3 Mg/0.5 Mg (3 Ml) Ud) 3 ml INH RQ6 [facility] Last Admin: 07/19/17 19:04 Dose: 3 ml Aspirin (Ecotrin) 81 mg PO DAILY [facility] Last Admin: 07/19/17 09:14 Dose: 81 mg Enoxaparin Sodium (Lovenox) 40 mg SC DAILY [facility] Last Admin: 07/19/17 09:19 Dose: Not Given Guaifenesin/Dextromethorphan (Robitussin Dm) 10 ml PO Q4H PRN PRN Reason: Cough and congestion Last Admin: 07/19/17 07:03 Dose: 10 ml Aztreonam 1 gm/ Sodium (Chloride) 100 mls @ 200 mls/hr IVPB Q8H [facility] Last Admin: 07/19/17 15:22 Dose: 200 mls/hr Azithromycin 500 mg/ Sodium (Chloride) 250 mls @ 250 mls/hr IVPB DAILY [facility] Last Admin: 07/19/17 09:14 Dose: 250 mls/hr Insulin Human Regular (Novolin R) 0 unit SC ACHS [facility] PRN Reason: Protocol Last Admin: 07/19/17 21:48 Dose: Not Given Levothyroxine Sodium (Synthroid) 125 mcg PO DAILY@0630 [facility] Last Admin: 07/19/17 07:03 Dose: 125 mcg Lorazepam (Ativan) 1 mg PO BID PRN PRN Reason: Anxiety Last Admin: 07/19/17 15:28 Dose: 1 mg Metformin HCl (Glucophage) 500 mg PO BID [facility] Last Admin: 07/19/17 18:09 Dose: 500 mg Pantoprazole Sodium (Protonix Inj) 40 mg IVP DAILY [facility] Last Admin: 07/19/17 09:14 Dose: 40 mg Temazepam (Restoril) 30 mg PO HS PRN PRN Reason: Insomnia Triamterene/HCTZ (Dyazide 25 Mg-37.5 Mg) 1 cap PO DAILY [facility] Last Admin: 07/19/17 18:31 Dose: 1 cap - Labs Labs: 07/19/17 07:16 07/19/17 07:16 - Constitutional Appears: Non-toxic, No Acute Distress - Head Exam Head Exam: ATRAUMATIC, NORMAL INSPECTION, NORMOCEPHALIC - Eye Exam Eye Exam: EOMI, Normal appearance, PERRL Pupil Exam: NORMAL ACCOMODATION - ENT Exam ENT Exam: Mucous Membranes Moist, Normal Exam, Normal Oropharynx, TM's Normal Bilaterally - Neck Exam Neck Exam: Normal Inspection - Respiratory Exam Respiratory Exam: Decreased Breath Sounds, Rales, Rhonchi - Cardiovascular Exam Cardiovascular Exam: REGULAR RHYTHM, +S1, +S2 - GI/Abdominal Exam GI & Abdominal Exam: Soft, Normal Bowel Sounds - Extremities Exam Extremities Exam: Normal Capillary Refill, Normal Inspection - Neurological Exam Neurological Exam: Alert, Awake, CN II-XII Intact, Normal Gait, Oriented x3 Neuro motor strength exam: Left Upper Extremity: 5, Right Upper Extremity: 5, Left Lower Extremity: 5, Right Lower Extremity: 5 - Psychiatric Exam Psychiatric exam: Anxious, Flat Affect - Skin Skin Exam: Intact Assessment and Plan (1) COPD exacerbation Status: Acute (2) Hypertension Status: Chronic (3) Diabetes mellitus Status: Chronic (4) Pneumonia Status: Acute
[2017-07-20] MEDS: Albuterol-Ipratrop 3 mg / 0.5 (3 ml) UD INH SCH ×4 (01:02→19:13)
[2017-07-20] MEDS: guaiFENesin DM 200 mg-20 mg/10 ml UD PO PRN ×2 (06:21→20:43)
[2017-07-20] MEDS: Levothyroxine 125 MCG TAB PO SCH (06:21)
[2017-07-20] MEDS: Aztreonam 1 GM in Sodium Chloride 0.9% 100 ML IVPB SCH ×3 (06:49→23:04)
[2017-07-20] MEDS: (Novolin R) Insulin Human Regular 100 units/ml vial SC SCH ×4 (07:25→22:00)
[2017-07-20] MEDS: Enoxaparin 40 mg Syringe SC SCH (10:47)
[2017-07-20] MEDS: Azithromycin 500 MG in Sodium Chloride 0.9% 250 ML IVPB SCH (10:47)
[2017-07-20] MEDS: hydroCHLOROthiazide-Triamterene 25 mg-37.5 mg Cap UD PO SCH (11:08)
--- NOTE | 2017-07-20 16:11 | CP.PCM.PN ---
Objective - Vital Signs/Intake and Output Vital Signs (last 24 hours): Temp Pulse Resp BP Pulse Ox 98.9 F 101 H 22 173/84 H 95 07/20/17 08:43 07/20/17 08:43 07/20/17 08:43 07/20/17 08:43 07/20/17 08:43 - Medications Medications: Current Medications Acetaminophen (Tylenol 325mg Tab) 650 mg PO Q6 PRN PRN Reason: Fever >100.4 F Last Admin: 07/17/17 19:04 Dose: 650 mg Albuterol/Ipratropium (Duoneb 3 Mg/0.5 Mg (3 Ml) Ud) 3 ml INH RQ6 [facility] Last Admin: 07/20/17 13:28 Dose: 3 ml Aspirin (Ecotrin) 81 mg PO DAILY [facility] Last Admin: 07/20/17 10:46 Dose: 81 mg Enoxaparin Sodium (Lovenox) 40 mg SC DAILY [facility] Last Admin: 07/20/17 10:47 Dose: Not Given Guaifenesin/Dextromethorphan (Robitussin Dm) 10 ml PO Q4H PRN PRN Reason: Cough and congestion Last Admin: 07/20/17 06:21 Dose: 10 ml Aztreonam 1 gm/ Sodium (Chloride) 100 mls @ 200 mls/hr IVPB Q8H [facility] Last Admin: 07/20/17 06:49 Dose: 200 mls/hr Azithromycin 500 mg/ Sodium (Chloride) 250 mls @ 250 mls/hr IVPB DAILY [facility] Last Admin: 07/20/17 10:47 Dose: 250 mls/hr Insulin Human Regular (Novolin R) 0 unit SC ACHS [facility] PRN Reason: Protocol Last Admin: 07/20/17 12:14 Dose: Not Given Levothyroxine Sodium (Synthroid) 125 mcg PO DAILY@0630 [facility] Last Admin: 07/20/17 06:21 Dose: 125 mcg Lorazepam (Ativan) 1 mg PO BID PRN PRN Reason: Anxiety Last Admin: 07/19/17 15:28 Dose: 1 mg Metformin HCl (Glucophage) 500 mg PO BID [facility] Last Admin: 07/20/17 10:45 Dose: 500 mg Pantoprazole Sodium (Protonix Inj) 40 mg IVP DAILY [facility] Last Admin: 07/20/17 10:46 Dose: 40 mg Temazepam (Restoril) 30 mg PO HS PRN PRN Reason: Insomnia Last Admin: 07/19/17 23:55 Dose: 30 mg Triamterene/HCTZ (Dyazide 25 Mg-37.5 Mg) 1 cap PO DAILY [facility] Last Admin: 07/20/17 11:08 Dose: 1 cap - Labs Labs: 07/19/17 07:16 07/19/17 07:16 Assessment and Plan (1) Pneumonia Status: Acute
[2017-07-20 16:26] VITALS: RESP 20
[2017-07-21] MEDS: Albuterol-Ipratrop 3 mg / 0.5 (3 ml) UD INH SCH ×4 (01:05→20:05)
[2017-07-21] MEDS: Levothyroxine 125 MCG TAB PO SCH (05:58)
[2017-07-21 06:37] LABS: BASO % 0.3 % (0.0-2.0); EOS # 0.5 K/uL (0.0-0.7); EOS % 4.3 % (0.0-4.0); HEMATOCRIT 37.4 % (34.0-47.0); LYMPH # 3.3 K/uL (1.0-4.3); LYMPH % 30.3 % (20.0-40.0); MEAN CELL VOLUME 82.8 fL (81.0-99.0); MEAN CORPUSCULAR HEMOGLOBIN 27.6 pg (27.0-31.0); MEAN CORPUSCULAR HGB CONC 33.3 g/dL (33.0-37.0); MEAN PLATELET VOLUME 9.4 fL (7.2-11.7); MONO # 1.5 K/uL (0.0-0.8); MONO % 13.7 % (0.0-10.0); RED CELL DISTRIBUTION WIDTH 15.2 % (11.5-14.5); WHITE BLOOD COUNT 10.8 K/uL (4.8-10.8)
[2017-07-21] MEDS: Aztreonam 1 GM in Sodium Chloride 0.9% 100 ML IVPB SCH ×3 (06:54→23:04)
[2017-07-21] MEDS: guaiFENesin DM 200 mg-20 mg/10 ml UD PO PRN (06:59)
[2017-07-21] MEDS: (Novolin R) Insulin Human Regular 100 units/ml vial SC SCH ×4 (07:21→22:17)
[2017-07-21 07:29] LABS: BLOOD UREA NITROGEN 16 mg/dL (7-17); CALCIUM 9.2 mg/dl (8.6-10.4); CARBON DIOXIDE 26 mmol/L (22-30); CHLORIDE 103 mmol/L (98-107); GFR AFRICAN-AMERICAN > 60; GLUCOSE,RANDOM 112 mg/dL (65-105); POTASSIUM 4.2 mmol/L (3.6-5.2); SODIUM 140 mmol/L (132-148)
[2017-07-21] MEDS: hydroCHLOROthiazide-Triamterene 25 mg-37.5 mg Cap UD PO SCH (09:19)
[2017-07-21] MEDS: Enoxaparin 40 mg Syringe SC SCH (09:19)
[2017-07-21] MEDS: Azithromycin 500 MG in Sodium Chloride 0.9% 250 ML IVPB SCH (09:39)
--- NOTE | 2017-07-21 13:19 | RAD ---
HISTORY: R/O PNEUMOIA COMPARISON: 07/17/2017 TECHNIQUE: Chest PA and lateral FINDINGS: LUNGS: Left basilar infiltrate, likely lingular. PLEURA: No significant pleural effusion identified. No pneumothorax apparent. CARDIOVASCULAR: Normal. OSSEOUS STRUCTURES: No significant abnormalities. VISUALIZED UPPER ABDOMEN: Normal. OTHER FINDINGS: None. IMPRESSION: Lingular infiltrate, minimally improved from 07/17/2017.
--- NOTE | 2017-07-22 00:05 | CP.PCM.PN ---
Subjective - Date & Time of Evaluation Date of Evaluation: 07/20/17 - Subjective Subjective: COUGH, L POST CHEST PAIN, NO SOB Objective - Vital Signs/Intake and Output Vital Signs (last 24 hours): Temp Pulse Resp BP Pulse Ox 97.8 F 78 20 160/85 H 96 07/21/17 15:00 07/21/17 15:00 07/21/17 15:00 07/21/17 15:00 07/21/17 15:00 Intake and Output: 07/21/17 07/22/17 18:59 06:59 Intake Total 350 Balance 350 - Medications Medications: Current Medications Acetaminophen (Tylenol 325mg Tab) 650 mg PO Q6 PRN PRN Reason: Fever >100.4 F Last Admin: 07/17/17 19:04 Dose: 650 mg Acetaminophen (Tylenol 325mg Tab) 650 mg PO Q4 PRN PRN Reason: pain Last Admin: 07/21/17 18:18 Dose: 650 mg Albuterol/Ipratropium (Duoneb 3 Mg/0.5 Mg (3 Ml) Ud) 3 ml INH RQ6 [facility] Last Admin: 07/21/17 20:05 Dose: 3 ml Aspirin (Ecotrin) 81 mg PO DAILY [facility] Last Admin: 07/21/17 09:19 Dose: 81 mg Enoxaparin Sodium (Lovenox) 40 mg SC DAILY [facility] Last Admin: 07/21/17 09:19 Dose: Not Given Guaifenesin/Dextromethorphan (Robitussin Dm) 10 ml PO Q4H PRN PRN Reason: Cough and congestion Last Admin: 07/21/17 06:59 Dose: 10 ml Aztreonam 1 gm/ Sodium (Chloride) 100 mls @ 200 mls/hr IVPB Q8H [facility] Last Admin: 07/21/17 23:04 Dose: 200 mls/hr Azithromycin 500 mg/ Sodium (Chloride) 250 mls @ 250 mls/hr IVPB DAILY [facility] Last Admin: 07/21/17 09:39 Dose: 250 mls/hr Insulin Human Regular (Novolin R) 0 unit SC ACHS [facility] PRN Reason: Protocol Last Admin: 07/21/17 22:17 Dose: Not Given Levothyroxine Sodium (Synthroid) 125 mcg PO DAILY@0630 [facility] Last Admin: 07/21/17 05:58 Dose: 125 mcg Lorazepam (Ativan) 1 mg PO BID PRN PRN Reason: Anxiety Last Admin: 07/19/17 15:28 Dose: 1 mg Metformin HCl (Glucophage) 500 mg PO BID [facility] Last Admin: 07/21/17 18:16 Dose: 500 mg Pantoprazole Sodium (Protonix Inj) 40 mg IVP DAILY [facility] Last Admin: 07/21/17 09:19 Dose: 40 mg Temazepam (Restoril) 30 mg PO HS PRN PRN Reason: Insomnia Last Admin: 07/21/17 23:15 Dose: 30 mg Triamterene/HCTZ (Dyazide 25 Mg-37.5 Mg) 1 cap PO DAILY [facility] Last Admin: 07/21/17 09:19 Dose: 1 cap - Labs Labs: 07/21/17 06:18 07/21/17 06:18 - Constitutional Appears: Non-toxic, No Acute Distress - Head Exam Head Exam: ATRAUMATIC, NORMAL INSPECTION, NORMOCEPHALIC - Eye Exam Eye Exam: EOMI, Normal appearance, PERRL Pupil Exam: NORMAL ACCOMODATION - ENT Exam ENT Exam: Mucous Membranes Moist, Normal Exam, Normal Oropharynx, TM's Normal Bilaterally - Neck Exam Neck Exam: Normal Inspection - Respiratory Exam Respiratory Exam: Rales, NORMAL BREATHING PATTERN - Cardiovascular Exam Cardiovascular Exam: REGULAR RHYTHM, +S1, +S2 - GI/Abdominal Exam GI & Abdominal Exam: Soft, Normal Bowel Sounds - Extremities Exam Extremities Exam: Normal Capillary Refill - Neurological Exam Neurological Exam: Alert, Awake, CN II-XII Intact, Normal Gait, Oriented x3 - Psychiatric Exam Psychiatric exam: Normal Mood - Skin Skin Exam: Intact Assessment and Plan (1) COPD exacerbation Status: Acute (2) Hypertension Status: Chronic (3) Diabetes mellitus Status: Chronic (4) Pneumonia Assessment & Plan: CONTINUE ANTIBIOTICS Status: Acute
--- NOTE | 2017-07-22 00:06 | CP.PCM.PN ---
Subjective - Date & Time of Evaluation Date of Evaluation: 07/21/17 - Subjective Subjective: COUGH, L POSTERIOR CHEST PAIN, NO SOB, NO NAUSEA, Objective - Vital Signs/Intake and Output Vital Signs (last 24 hours): Temp Pulse Resp BP Pulse Ox 97.8 F 78 20 160/85 H 96 07/21/17 15:00 07/21/17 15:00 07/21/17 15:00 07/21/17 15:00 07/21/17 15:00 Intake and Output: 07/21/17 07/22/17 18:59 06:59 Intake Total 350 Balance 350 - Medications Medications: Current Medications Acetaminophen (Tylenol 325mg Tab) 650 mg PO Q6 PRN PRN Reason: Fever >100.4 F Last Admin: 07/17/17 19:04 Dose: 650 mg Acetaminophen (Tylenol 325mg Tab) 650 mg PO Q4 PRN PRN Reason: pain Last Admin: 07/21/17 18:18 Dose: 650 mg Albuterol/Ipratropium (Duoneb 3 Mg/0.5 Mg (3 Ml) Ud) 3 ml INH RQ6 [facility] Last Admin: 07/21/17 20:05 Dose: 3 ml Aspirin (Ecotrin) 81 mg PO DAILY [facility] Last Admin: 07/21/17 09:19 Dose: 81 mg Enoxaparin Sodium (Lovenox) 40 mg SC DAILY [facility] Last Admin: 07/21/17 09:19 Dose: Not Given Guaifenesin/Dextromethorphan (Robitussin Dm) 10 ml PO Q4H PRN PRN Reason: Cough and congestion Last Admin: 07/21/17 06:59 Dose: 10 ml Aztreonam 1 gm/ Sodium (Chloride) 100 mls @ 200 mls/hr IVPB Q8H [facility] Last Admin: 07/21/17 23:04 Dose: 200 mls/hr Azithromycin 500 mg/ Sodium (Chloride) 250 mls @ 250 mls/hr IVPB DAILY [facility] Last Admin: 07/21/17 09:39 Dose: 250 mls/hr Insulin Human Regular (Novolin R) 0 unit SC ACHS [facility] PRN Reason: Protocol Last Admin: 07/21/17 22:17 Dose: Not Given Levothyroxine Sodium (Synthroid) 125 mcg PO DAILY@0630 [facility] Last Admin: 07/21/17 05:58 Dose: 125 mcg Lorazepam (Ativan) 1 mg PO BID PRN PRN Reason: Anxiety Last Admin: 07/19/17 15:28 Dose: 1 mg Metformin HCl (Glucophage) 500 mg PO BID [facility] Last Admin: 07/21/17 18:16 Dose: 500 mg Pantoprazole Sodium (Protonix Inj) 40 mg IVP DAILY [facility] Last Admin: 07/21/17 09:19 Dose: 40 mg Temazepam (Restoril) 30 mg PO HS PRN PRN Reason: Insomnia Last Admin: 07/21/17 23:15 Dose: 30 mg Triamterene/HCTZ (Dyazide 25 Mg-37.5 Mg) 1 cap PO DAILY [facility] Last Admin: 07/21/17 09:19 Dose: 1 cap - Labs Labs: 07/21/17 06:18 07/21/17 06:18 - Constitutional Appears: Non-toxic, No Acute Distress - Head Exam Head Exam: ATRAUMATIC, NORMAL INSPECTION, NORMOCEPHALIC - Eye Exam Eye Exam: Normal appearance Pupil Exam: NORMAL ACCOMODATION - ENT Exam ENT Exam: Mucous Membranes Moist, Normal Exam - Neck Exam Neck Exam: Normal Inspection - Respiratory Exam Respiratory Exam: Decreased Breath Sounds, Rales - Cardiovascular Exam Cardiovascular Exam: REGULAR RHYTHM, +S1, +S2 - GI/Abdominal Exam GI & Abdominal Exam: Soft, Normal Bowel Sounds - Rectal Exam Rectal Exam: NORMAL INSPECTION - Extremities Exam Extremities Exam: Normal Capillary Refill - Neurological Exam Neurological Exam: Alert, Awake, CN II-XII Intact, Normal Gait, Oriented x3 - Psychiatric Exam Psychiatric exam: Normal Mood - Skin Skin Exam: Intact Assessment and Plan (1) COPD exacerbation Status: Acute (2) Hypertension Status: Chronic (3) Diabetes mellitus Status: Chronic (4) Pneumonia Status: Acute
[2017-07-22] MEDS: Albuterol-Ipratrop 3 mg / 0.5 (3 ml) UD INH SCH ×4 (01:11→19:37)
[2017-07-22] MEDS: Levothyroxine 125 MCG TAB PO SCH (05:55)
[2017-07-22] MEDS: Aztreonam 1 GM in Sodium Chloride 0.9% 100 ML IVPB SCH ×3 (06:45→23:06)
[2017-07-22] MEDS: (Novolin R) Insulin Human Regular 100 units/ml vial SC SCH ×4 (07:22→21:30)
[2017-07-22] MEDS: Azithromycin 500 MG in Sodium Chloride 0.9% 250 ML IVPB SCH (09:51)
[2017-07-22] MEDS: hydroCHLOROthiazide-Triamterene 25 mg-37.5 mg Cap UD PO SCH (09:51)
[2017-07-22] MEDS: Enoxaparin 40 mg Syringe SC SCH (09:52)
--- NOTE | 2017-07-22 10:57 | CARD ---
APPROVED REPORT EXAM: Two-dimensional and M-mode echocardiogram with Doppler and color Doppler. Other Information Quality : GoodRhythm : NSR INDICATION Pericardial Effusion Systolic RISK FACTORS Hypertension Diabetes 2D DIMENSIONS IVSd1.1 (0.7-1.1cm)LVDd4.6 (3.9-5.9cm) PWd1.0 (0.7-1.1cm)LVDs3.1 (2.5-4.0cm) FS (%) 33.1 %LVEF (%)61.8 (>50%) M-Mode DIMENSIONS Left Atrium (MM)3.88 (2.5-4.0cm)Aortic Root2.90 (2.2-3.7cm) Aortic Cusp Exc.1.91 (1.5-2.0cm) Mitral Valve MV E Uozgoyay04.0cm/sMV A Fnjfquwd261.4cm/sE/A ratio0.7 TDI E/Lateral E'0.0E/Medial E'0.0 Tricuspid Valve TR Peak [id number]/sTR Peak [id number] <Conclusion> Left ventricle: thickness: normal; size: normal; overall ejection fraction: 60%: diastolic filling pressures: normal Mitral valve: annulus: normal: leaflets: normal: excursion: normal; no significant trans-mitral gradient: no significant incompetence: left atrium: normal Aortic valve: leaflets: normal: excursion: normal; no significant trans-aortic gradient:tracet incompetence: aortic root: normal Right sided Structures: Pulmonary valve: normal; no significant incompetence; Tricuspid valve: normal; mild incompetence: Intra-cardiac hemodynamics: pulmonary systolic pressures:50mmHg; central venous pressures: normal No pericardial effusion
--- NOTE | 2017-07-22 11:06 | CP.PCM.PN ---
Subjective - Date & Time of Evaluation Date of Evaluation: 07/22/17 Time of Evaluation: 09:00 - Subjective Subjective: Patient seen and examined. Sitting comfortably in no acute distress Patient is able to walk without shortness of breath Chest x-ray showed slight improvement Afebrile Objective - Vital Signs/Intake and Output Vital Signs (last 24 hours): Temp Pulse Resp BP Pulse Ox 98.3 F 77 20 135/82 96 07/22/17 07:10 07/22/17 07:10 07/22/17 07:10 07/22/17 07:10 07/22/17 07:10 Intake and Output: 07/22/17 07/22/17 06:59 18:59 Intake Total 350 Balance 350 - Medications Medications: Current Medications Acetaminophen (Tylenol 325mg Tab) 650 mg PO Q6 PRN PRN Reason: Fever >100.4 F Last Admin: 07/17/17 19:04 Dose: 650 mg Acetaminophen (Tylenol 325mg Tab) 650 mg PO Q4 PRN PRN Reason: pain Last Admin: 07/21/17 18:18 Dose: 650 mg Albuterol/Ipratropium (Duoneb 3 Mg/0.5 Mg (3 Ml) Ud) 3 ml INH RQ6 [facility] Last Admin: 07/22/17 07:27 Dose: 3 ml Aspirin (Ecotrin) 81 mg PO DAILY [facility] Last Admin: 07/22/17 09:51 Dose: 81 mg Enoxaparin Sodium (Lovenox) 40 mg SC DAILY [facility] Last Admin: 07/22/17 09:52 Dose: Not Given Guaifenesin/Dextromethorphan (Robitussin Dm) 10 ml PO Q4H PRN PRN Reason: Cough and congestion Last Admin: 07/21/17 06:59 Dose: 10 ml Aztreonam 1 gm/ Sodium (Chloride) 100 mls @ 200 mls/hr IVPB Q8H [facility] Last Admin: 07/22/17 06:45 Dose: 200 mls/hr Azithromycin 500 mg/ Sodium (Chloride) 250 mls @ 250 mls/hr IVPB DAILY [facility] Last Admin: 07/22/17 09:51 Dose: 250 mls/hr Insulin Human Regular (Novolin R) 0 unit SC ACHS [facility] PRN Reason: Protocol Last Admin: 07/22/17 07:22 Dose: Not Given Levothyroxine Sodium (Synthroid) 125 mcg PO DAILY@0630 [facility] Last Admin: 07/22/17 05:55 Dose: 125 mcg Lorazepam (Ativan) 1 mg PO BID PRN PRN Reason: Anxiety Last Admin: 07/19/17 15:28 Dose: 1 mg Metformin HCl (Glucophage) 500 mg PO BID [facility] Last Admin: 07/22/17 09:51 Dose: 500 mg Pantoprazole Sodium (Protonix Inj) 40 mg IVP DAILY [facility] Last Admin: 07/22/17 09:51 Dose: 40 mg Temazepam (Restoril) 30 mg PO HS PRN PRN Reason: Insomnia Last Admin: 07/21/17 23:15 Dose: 30 mg Triamterene/HCTZ (Dyazide 25 Mg-37.5 Mg) 1 cap PO DAILY [facility] Last Admin: 07/22/17 09:51 Dose: 1 cap - Labs Labs: 07/21/17 06:18 07/21/17 06:18 - Head Exam Head Exam: ATRAUMATIC, NORMOCEPHALIC - Eye Exam Eye Exam: Normal appearance - ENT Exam ENT Exam: Mucous Membranes Moist - Neck Exam Neck Exam: Normal Inspection - Respiratory Exam Respiratory Exam: Rales - Cardiovascular Exam Cardiovascular Exam: REGULAR RHYTHM - GI/Abdominal Exam GI & Abdominal Exam: Soft, Normal Bowel Sounds - Extremities Exam Extremities Exam: Normal Inspection Assessment and Plan (1) Pneumonia Assessment & Plan: continue IV antibiotics Clinically improving continue treatment for COPD Will need pulmonary function test Repeat CAT scan of the chest in 2 weeks as outpatient Status: Acute
--- NOTE | 2017-07-22 22:34 | CP.PCM.PN ---
Subjective - Subjective Subjective: FEELS BETTER. LESS COUGH, NO SOB Objective - Vital Signs/Intake and Output Vital Signs (last 24 hours): Temp Pulse Resp BP Pulse Ox 97.9 F 82 20 160/71 H 98 07/22/17 16:00 07/22/17 16:00 07/22/17 16:00 07/22/17 16:00 07/22/17 16:00 - Medications Medications: Current Medications Acetaminophen (Tylenol 325mg Tab) 650 mg PO Q6 PRN PRN Reason: Fever >100.4 F Last Admin: 07/17/17 19:04 Dose: 650 mg Acetaminophen (Tylenol 325mg Tab) 650 mg PO Q4 PRN PRN Reason: pain Last Admin: 07/22/17 16:00 Dose: 650 mg Aspirin (Ecotrin) 81 mg PO DAILY [facility] Last Admin: 07/22/17 09:51 Dose: 81 mg Enoxaparin Sodium (Lovenox) 40 mg SC DAILY [facility] Last Admin: 07/22/17 09:52 Dose: Not Given Guaifenesin/Dextromethorphan (Robitussin Dm) 10 ml PO Q4H PRN PRN Reason: Cough and congestion Last Admin: 07/21/17 06:59 Dose: 10 ml Aztreonam 1 gm/ Sodium (Chloride) 100 mls @ 200 mls/hr IVPB Q8H [facility] Last Admin: 07/22/17 15:59 Dose: 200 mls/hr Azithromycin 500 mg/ Sodium (Chloride) 250 mls @ 250 mls/hr IVPB DAILY [facility] Last Admin: 07/22/17 09:51 Dose: 250 mls/hr Insulin Human Regular (Novolin R) 0 unit SC ACHS [facility] PRN Reason: Protocol Last Admin: 07/22/17 21:30 Dose: Not Given Levothyroxine Sodium (Synthroid) 125 mcg PO DAILY@0630 [facility] Last Admin: 07/22/17 05:55 Dose: 125 mcg Lorazepam (Ativan) 1 mg PO BID PRN PRN Reason: Anxiety Last Admin: 07/19/17 15:28 Dose: 1 mg Metformin HCl (Glucophage) 500 mg PO BID [facility] Last Admin: 07/22/17 18:35 Dose: 500 mg Pantoprazole Sodium (Protonix Inj) 40 mg IVP DAILY [facility] Last Admin: 07/22/17 09:51 Dose: 40 mg Temazepam (Restoril) 30 mg PO HS PRN PRN Reason: Insomnia Last Admin: 07/21/17 23:15 Dose: 30 mg Triamterene/HCTZ (Dyazide 25 Mg-37.5 Mg) 1 cap PO DAILY [facility] Last Admin: 07/22/17 09:51 Dose: 1 cap - Labs Labs: 07/21/17 06:18 07/21/17 06:18 - Constitutional Appears: Non-toxic, No Acute Distress - Head Exam Head Exam: ATRAUMATIC, NORMAL INSPECTION, NORMOCEPHALIC - Eye Exam Eye Exam: EOMI, Normal appearance, PERRL Pupil Exam: NORMAL ACCOMODATION - ENT Exam ENT Exam: Mucous Membranes Moist, Normal Exam, Normal Oropharynx, TM's Normal Bilaterally - Neck Exam Neck Exam: Normal Inspection - Respiratory Exam Respiratory Exam: Decreased Breath Sounds, Rales - Cardiovascular Exam Cardiovascular Exam: REGULAR RHYTHM, +S1, +S2 - GI/Abdominal Exam GI & Abdominal Exam: Normal Bowel Sounds - Rectal Exam Rectal Exam: NORMAL INSPECTION - Extremities Exam Extremities Exam: Normal Capillary Refill - Neurological Exam Neurological Exam: Alert, Awake, CN II-XII Intact, Normal Gait, Oriented x3 Assessment and Plan (1) COPD exacerbation Status: Acute (2) Hypertension Status: Chronic (3) Diabetes mellitus Status: Chronic (4) Pneumonia Status: Acute
[2017-07-23] MEDS: guaiFENesin DM 200 mg-20 mg/10 ml UD PO PRN (03:07)
[2017-07-23] MEDS: Levothyroxine 125 MCG TAB PO SCH (06:34)
[2017-07-23] MEDS: Aztreonam 1 GM in Sodium Chloride 0.9% 100 ML IVPB SCH ×2 (06:48→15:06)
[2017-07-23] MEDS: (Novolin R) Insulin Human Regular 100 units/ml vial SC SCH ×2 (07:55→13:07)
[2017-07-23] MEDS: hydroCHLOROthiazide-Triamterene 25 mg-37.5 mg Cap UD PO SCH (10:46)
[2017-07-23] MEDS: Azithromycin 500 MG in Sodium Chloride 0.9% 250 ML IVPB SCH (10:46)
[2017-07-23] MEDS: Enoxaparin 40 mg Syringe SC SCH (10:46)
[2017-07-23] MEDS ORDERED: Nystatin 100,000 Units/ml Oral Susp 5 ml UD PO SCH (14:33)
--- NOTE | 2017-07-23 14:47 | RAD ---
Chest x-ray two views History: Infiltrate. Comparison: 07/21/2017 Findings: Persistent but decreased prominent consolidative opacity in the lateral aspect of the left mid to lower lung zone. Linear atelectatic changes in the right mid to lower lung zone Mild venous congestion. Right hilar prominence. Tortuous aorta. Calcification at the aortic knob. Mild cardiomegaly. Degenerative changes in the spine and shoulders. Impression: Persistent but decreased prominent consolidative opacity in the lateral aspect of the left mid to lower lung zone. Linear atelectatic changes in the right mid to lower lung zone Mild venous congestion. Right hilar prominence. Tortuous aorta. Calcification at the aortic knob. Mild cardiomegaly.
[2017-07-23 15:50] VITALS: BP 166/67; PULSE 74; TEMP 98.2; O2SAT 97
--- NOTE | 2017-07-23 16:26 | CP.PCM.PN ---
Subjective - Date & Time of Evaluation Date of Evaluation: 07/23/17 Time of Evaluation: 16:26 - Subjective Subjective: DISCUSSED DC PLAN WITH DR. SCHROEDER. PER DR. SCHROEDER D/C PT AFTER REPEAT CXR TODAY. PT HAD REPEAT CXR TODAY--SEE OFFICIAL REPORT. PER DR. ARGUELLES OK TO D/C HOME TODAY WITH PO ABX. RX GIVEN FOR DOXY X 7 DAYS. PT HAS NEW THRUSH AND RX GIVEN FOR NYSTATIN X7 DAYS WELL. PT TO F/U WITH PMD IN OFFICE WITHIN 1 WEEK. LENGTHY DISCUSSION W PT REGARDING D/C AND MEDS. NO FURTHER ORDERS. Objective - Vital Signs/Intake and Output Vital Signs (last 24 hours): Temp Pulse Resp BP Pulse Ox 98.2 F 74 20 166/67 H 97 07/23/17 15:00 07/23/17 15:00 07/23/17 15:00 07/23/17 15:00 07/23/17 15:00 Intake and Output: 07/23/17 07/23/17 06:59 18:59 Intake Total 350 Balance 350 - Medications Medications: Current Medications Acetaminophen (Tylenol 325mg Tab) 650 mg PO Q6 PRN PRN Reason: Fever >100.4 F Last Admin: 07/17/17 19:04 Dose: 650 mg Acetaminophen (Tylenol 325mg Tab) 650 mg PO Q4 PRN PRN Reason: pain Last Admin: 07/23/17 03:07 Dose: 650 mg Aspirin (Ecotrin) 81 mg PO DAILY [facility] Last Admin: 07/23/17 10:46 Dose: 81 mg Enoxaparin Sodium (Lovenox) 40 mg SC DAILY [facility] Last Admin: 07/23/17 10:46 Dose: 40 mg Guaifenesin/Dextromethorphan (Robitussin Dm) 10 ml PO Q4H PRN PRN Reason: Cough and congestion Last Admin: 07/23/17 03:07 Dose: 10 ml Aztreonam 1 gm/ Sodium (Chloride) 100 mls @ 200 mls/hr IVPB Q8H [facility] Last Admin: 07/23/17 15:06 Dose: 200 mls/hr Azithromycin 500 mg/ Sodium (Chloride) 250 mls @ 250 mls/hr IVPB DAILY [facility] Last Admin: 07/23/17 10:46 Dose: 250 mls/hr Insulin Human Regular (Novolin R) 0 unit SC ACHS [facility] PRN Reason: Protocol Last Admin: 07/23/17 13:07 Dose: 2 unit Levothyroxine Sodium (Synthroid) 125 mcg PO DAILY@0630 [facility] Last Admin: 07/23/17 06:34 Dose: 125 mcg Lorazepam (Ativan) 1 mg PO BID PRN PRN Reason: Anxiety Last Admin: 07/23/17 10:56 Dose: 1 mg Metformin HCl (Glucophage) 500 mg PO BID [facility] Last Admin: 07/23/17 10:46 Dose: 500 mg Nystatin (Nystatin Oral Susp) 5 ml PO QID [facility] Pantoprazole Sodium (Protonix Inj) 40 mg IVP DAILY [facility] Last Admin: 07/23/17 10:46 Dose: 40 mg Temazepam (Restoril) 30 mg PO HS PRN PRN Reason: Insomnia Last Admin: 07/22/17 23:54 Dose: 30 mg Triamterene/HCTZ (Dyazide 25 Mg-37.5 Mg) 1 cap PO DAILY [facility] Last Admin: 07/23/17 10:46 Dose: 1 cap - Labs Labs: 07/21/17 06:18 07/21/17 06:18
--- NOTE | 2017-07-23 16:29 | CP.PCM.PN ---
Subjective - Date & Time of Evaluation Date of Evaluation: 07/23/17 Time of Evaluation: 09:25 - Subjective Subjective: The patient seen and examined Clinically improving Denies cough afebrile No chest pain Ambulatory Objective - Vital Signs/Intake and Output Vital Signs (last 24 hours): Temp Pulse Resp BP Pulse Ox 98.2 F 74 20 166/67 H 97 07/23/17 15:00 07/23/17 15:00 07/23/17 15:00 07/23/17 15:00 07/23/17 15:00 Intake and Output: 07/23/17 07/23/17 06:59 18:59 Intake Total 350 Balance 350 - Medications Medications: Current Medications Acetaminophen (Tylenol 325mg Tab) 650 mg PO Q6 PRN PRN Reason: Fever >100.4 F Last Admin: 07/17/17 19:04 Dose: 650 mg Acetaminophen (Tylenol 325mg Tab) 650 mg PO Q4 PRN PRN Reason: pain Last Admin: 07/23/17 03:07 Dose: 650 mg Aspirin (Ecotrin) 81 mg PO DAILY [facility] Last Admin: 07/23/17 10:46 Dose: 81 mg Enoxaparin Sodium (Lovenox) 40 mg SC DAILY [facility] Last Admin: 07/23/17 10:46 Dose: 40 mg Guaifenesin/Dextromethorphan (Robitussin Dm) 10 ml PO Q4H PRN PRN Reason: Cough and congestion Last Admin: 07/23/17 03:07 Dose: 10 ml Aztreonam 1 gm/ Sodium (Chloride) 100 mls @ 200 mls/hr IVPB Q8H [facility] Last Admin: 07/23/17 15:06 Dose: 200 mls/hr Azithromycin 500 mg/ Sodium (Chloride) 250 mls @ 250 mls/hr IVPB DAILY [facility] Last Admin: 07/23/17 10:46 Dose: 250 mls/hr Insulin Human Regular (Novolin R) 0 unit SC ACHS [facility] PRN Reason: Protocol Last Admin: 07/23/17 13:07 Dose: 2 unit Levothyroxine Sodium (Synthroid) 125 mcg PO DAILY@0630 [facility] Last Admin: 07/23/17 06:34 Dose: 125 mcg Lorazepam (Ativan) 1 mg PO BID PRN PRN Reason: Anxiety Last Admin: 07/23/17 10:56 Dose: 1 mg Metformin HCl (Glucophage) 500 mg PO BID [facility] Last Admin: 07/23/17 10:46 Dose: 500 mg Nystatin (Nystatin Oral Susp) 5 ml PO QID [facility] Pantoprazole Sodium (Protonix Inj) 40 mg IVP DAILY [facility] Last Admin: 07/23/17 10:46 Dose: 40 mg Temazepam (Restoril) 30 mg PO HS PRN PRN Reason: Insomnia Last Admin: 07/22/17 23:54 Dose: 30 mg Triamterene/HCTZ (Dyazide 25 Mg-37.5 Mg) 1 cap PO DAILY [facility] Last Admin: 07/23/17 10:46 Dose: 1 cap - Labs Labs: 07/21/17 06:18 07/21/17 06:18 - Head Exam Head Exam: ATRAUMATIC, NORMOCEPHALIC - Eye Exam Eye Exam: Normal appearance - ENT Exam ENT Exam: Mucous Membranes Moist - Neck Exam Neck Exam: Full ROM, Normal Inspection - Respiratory Exam Respiratory Exam: Clear to Ausculation Bilateral - Cardiovascular Exam Cardiovascular Exam: REGULAR RHYTHM - GI/Abdominal Exam GI & Abdominal Exam: Soft, Normal Bowel Sounds - Extremities Exam Extremities Exam: Full ROM, Normal Inspection - Neurological Exam Neurological Exam: Alert, Oriented x3 Assessment and Plan (1) Pneumonia Assessment & Plan: clinical condition much improved Chest x-ray with resolving pneumonia Okay to discharge home on p.o. antibiotics Repeat CAT scan in 2 weeks Status: Acute
--- NOTE | 2017-07-24 11:56 | CP.PCM.DIS ---
Provider - Provider Date of Admission: 07/17/17 16:28 Attending physician: Zeyad Donis MD Time Spent in preparation of Discharge (in minutes): 52 Diagnosis - Discharge Diagnosis (1) COPD exacerbation Status: Acute (2) Hypertension Status: Chronic (3) Diabetes mellitus Status: Chronic (4) Pneumonia Status: Acute Hospital Course - Lab Results Lab Results: Micro Results 07/17/17 Unknown Urine,Catheterized Urine Culture - Final No Growth (<1,000 CFU/ML) Most Recent Lab Values WBC 10.8 K/uL (4.8-10.8) 07/21/17 06:18 RBC 4.51 Mil/uL (3.80-5.20) 07/21/17 06:18 Hgb 12.5 g/dL (11.0-16.0) 07/21/17 06:18 Hct 37.4 % (34.0-47.0) 07/21/17 06:18 MCV 82.8 fL (81.0-99.0) 07/21/17 06:18 MCH 27.6 pg (27.0-31.0) 07/21/17 06:18 MCHC 33.3 g/dL (33.0-37.0) 07/21/17 06:18 RDW 15.2 % (11.5-14.5) H 07/21/17 06:18 Plt Count 231 K/uL (130-400) 07/21/17 06:18 MPV 9.4 fL (7.2-11.7) 07/21/17 06:18 Neut % (Auto) 51.4 % (50.0-75.0) 07/21/17 06:18 Lymph % (Auto) 30.3 % (20.0-40.0) 07/21/17 06:18 [place] % (Auto) 13.7 % (0.0-10.0) H 07/21/17 06:18 Eos % (Auto) 4.3 % (0.0-4.0) H 07/21/17 06:18 Baso % (Auto) 0.3 % (0.0-2.0) 07/21/17 06:18 Neut # 5.6 K/uL (1.8-7.0) 07/21/17 06:18 Lymph # 3.3 K/uL (1.0-4.3) 07/21/17 06:18 [place] # 1.5 K/uL (0.0-0.8) H 07/21/17 06:18 Eos # 0.5 K/uL (0.0-0.7) 07/21/17 06:18 Baso # 0.0 K/uL (0.0-0.2) 07/21/17 06:18 Neutrophils % (Manual) 86 % (50-75) H 07/18/17 06:18 Band Neutrophils % 2 % (0-2) 07/18/17 06:18 Lymphocytes % (Manual) 10 % (20-40) L 07/18/17 06:18 Monocytes % (Manual) 2 % (0-10) 07/18/17 06:18 Platelet Estimate Normal (NORMAL) 07/18/17 06:18 RBC Morphology Normal 07/18/17 06:18 Puncture Site Rradial 07/17/17 17:55 pCO2 28 mm/Hg (35-45) L 07/17/17 17:55 pO2 31 mm/Hg (30-55) 07/17/17 18:20 HCO3 24.3 mmol/L (21-28) 07/17/17 17:55 ABG pH 7.50 (7.35-7.45) H 07/17/17 17:55 ABG Total CO2 22.7 mmol/L (22-28) 07/17/17 17:55 ABG O2 Saturation 88.8 % (95-98) L 07/17/17 17:55 ABG Base Excess -0.4 mmol/L (-2.0-3.0) 07/17/17 17:55 ABG Hemoglobin 12.4 g/dL (11.7-17.4) 07/17/17 17:55 ABG Carboxyhemoglobin 3.0 % (0.5-1.5) H 07/17/17 17:55 POC ABG HHb (Measured) 10.7 % (0.0-5.0) H 07/17/17 17:55 ABG Methemoglobin 1.3 % (0.0-3.0) 07/17/17 17:55 Fadi Test Pos 07/17/17 17:55 VBG pH 7.40 (7.32-7.43) 07/17/17 18:20 VBG pCO2 27 mmHg (40-60) L 07/17/17 18:20 VBG HCO3 18.8 mmol/L 07/17/17 18:20 VBG Total CO2 17.5 mmol/L (22-28) L 07/17/17 18:20 VBG O2 Sat (Calc) 68.5 % (40-65) H 07/17/17 18:20 VBG Base Excess -6.6 mmol/L (0.0-2.0) L 07/17/17 18:20 VBG Potassium 2.5 mmol/L (3.6-5.2) L* 07/17/17 18:20 A-a O2 Difference 69.0 mm/Hg 07/17/17 17:55 Respiratory Index 1.5 07/17/17 17:55 Hgb O2 Saturation 85.0 % (95.0-98.0) L 07/17/17 17:55 Sodium 143.0 mmol/l (132-148) 07/17/17 18:20 Chloride 115.0 mmol/L (98-107) H 07/17/17 18:20 Glucose 110 mg/dl (65-105) H 07/17/17 18:20 Lactate 1.0 mmol/L (0.7-2.1) 07/17/17 18:20 FiO2 21.0 % 07/17/17 17:55 Crit Value Called To Dr annalee moya 07/17/17 18:20 Crit Value Called By Carmella prado 07/17/17 18:20 Crit Value Read Back Y 07/17/17 18:20 Blood Gas [place] Time 18407/17/17 18:20 Sodium 140 mmol/L (132-148) 07/21/17 06:18 Potassium 4.2 mmol/L (3.6-5.2) 07/21/17 06:18 Chloride 103 mmol/L (98-107) 07/21/17 06:18 Carbon Dioxide 26 mmol/L (22-30) 07/21/17 06:18 Anion Gap 15 (10-20) 07/21/17 06:18 BUN 16 mg/dL (7-17) 07/21/17 06:18 Creatinine 1.0 MG/DL (0.7-1.2) 07/21/17 06:18 Est GFR ( Amer) > 60 07/21/17 06:18 Est GFR (Non-Af Amer) 56 07/21/17 06:18 POC Glucose (mg/dL) 131 mg/dL (65-110) H 07/23/17 16:24 Random Glucose 112 mg/dL (65-105) H 07/21/17 06:18 Hemoglobin A1c 7.5 % (4.2-6.5) H 07/18/17 06:18 Lactic Acid 0.8 mmol/L (0.7-2.1) 07/17/17 21:40 Calcium 9.2 mg/dl (8.6-10.4) 07/21/17 06:18 Total Bilirubin 0.8 mg/dL (0.2-1.3) 07/17/17 18:41 AST 20 U/L (14-36) 07/17/17 18:41 ALT 26 U/L (9-52) 07/17/17 18:41 Alkaline Phosphatase 102 U/L (38-126) 07/17/17 18:41 Troponin I 0.0160 ng/mL (0.00-0.120) 07/17/17 14:16 Total Protein 6.9 g/dL (6.3-8.3) 07/17/17 18:41 Albumin 3.8 g/dL (3.5-5.0) 07/17/17 18:41 Globulin 3.1 gm/dL (2.2-3.9) 07/17/17 18:41 Albumin/Globulin Ratio 1.3 (1.0-2.1) 07/17/17 18:41 TSH 3rd Generation 0.11 mIU/L (0.46-4.68) L 07/18/17 06:18 Venous Blood Potassium 2.5 mmol/L (3.6-5.2) L* 07/17/17 18:20 Urine Color Yellow (YELLOW) 07/17/17 14:16 Urine Clarity Hazy (Clear) 07/17/17 14:16 Urine pH 5.0 (5.0-8.0) 07/17/17 14:16 Ur Specific [place] 1.017 (1.003-1.030) 07/17/17 14:16 Urine Protein 2+ mg/dL (NEGATIVE) H 07/17/17 14:16 Urine Glucose (UA) Normal mg/dL (Normal) 07/17/17 14:16 Urine Ketones Negative mg/dL (NEGATIVE) 07/17/17 14:16 Urine Blood 3+ (NEGATIVE) H 07/17/17 14:16 Urine Nitrate Negative (NEGATIVE) 07/17/17 14:16 Urine Bilirubin Negative (NEGATIVE) 07/17/17 14:16 Urine Urobilinogen Normal mg/dL (0.2-1.0) 07/17/17 14:16 Ur Leukocyte Esterase Neg Neo/uL (Negative) 07/17/17 14:16 Urine WBC (Auto) 4 /hpf (0-5) 07/17/17 14:16 Urine RBC (Auto) 65 /hpf (0-3) H 07/17/17 14:16 Ur Squamous Epith Cells 4 /hpf (0-5) 07/17/17 14:16 Amorphous Sediment Rare /ul (<OCC) H 07/17/17 14:16 Urine Bacteria Few (<OCC) H 07/17/17 14:16 Urine Opiates Screen Negative (NEGATIVE) 07/17/17 14:16 Urine Methadone Screen Negative (NEGATIVE) 07/17/17 14:16 Ur Barbiturates Screen Negative (NEGATIVE) 07/17/17 14:16 Ur Phencyclidine Scrn Negative (NEGATIVE) 07/17/17 14:16 Ur Amphetamines Screen Negative (NEGATIVE) 07/17/17 14:16 U Benzodiazepines Scrn Negative (NEGATIVE) 07/17/17 14:16 U Oth Cocaine Metabols Negative (NEGATIVE) 07/17/17 14:16 U Cannabinoids Screen Negative (NEGATIVE) 07/17/17 14:16 Alcohol, Quantitative < 10 mg/dl (0-10) 07/17/17 14:16 - Hospital Course Hospital Course: Pt seen and examined, clinical condition much improved Chest x-ray with resolving pneumonia Okay to discharge home on p.o. antibiotics Repeat CAT scan in 2 weeks Discharge Exam - Head Exam Head Exam: ATRAUMATIC, NORMOCEPHALIC - Eye Exam Eye Exam: EOMI, Normal appearance, PERRL Pupil Exam: NORMAL ACCOMODATION, PERRL - ENT Exam ENT Exam: Mucous Membranes Moist - Respiratory Exam Respiratory Exam: Rales, Rhonchi, Wheezes - Cardiovascular Exam Cardiovascular Exam: +S1, +S2 - GI/Abdominal Exam GI & Abdominal Exam: Normal Bowel Sounds Discharge Plan - Discharge Medications Prescriptions: Doxycycline Hyclate 100 mg PO BID 7 Days Nystatin [Nystatin Oral Susp] 5 ml PO QID 7 Days guaiFENesin [guaifENESIN] 100 mg PO Q4 PRN #8 oz PRN Reason: Cough - Follow Up Plan Condition: GOOD Disposition: HOME/ ROUTINE Instructions: Levofloxacin (By mouth), COPD (Chronic Obstructive Pulmonary Disease) (DC), Hypertension (DC), Hypertension (GEN), Pneumonia (DC) Additional Instructions: FOLLOW UP WITH DR. DONIS IN THE OFFICE WITHIN 1 WEEK---CALL FOR APPT TIME. FOLLOW UP WITH DR. SCHROEDER IN THE OFFICE WITHIN 1 WEEK---HE WILL SEND YOU FOR A REPEAT CAT SCAN IN ABOUT 2 WEEKS. CONTINUE YOUR HOME MEDICATIONS USUAL. NEW PRESCRIPTIONS INCLUDE: DOXYCYLINE (ANTIBIOTIC); COUGH MEDICINE (TAKE NEEDED); NYSTATIN (ANTIFUNGAL FOR YOUR MOUTH). MAKE SURE YOU TAKE THESE MEDICATIONS EXACTLY PRESCRIBED. FOR ANY FURTHER QUESTIONS OR CONCERNS, CONTACT DR. DONIS. Referrals: Jorge Luis Schroeder MD [Staff Provider] - Zeyad Donis MD [Staff Provider] -
== END 2017-07-23 16:55 | disposition home or self-care (01) | DRG 190 ==
LOC: C.ER 13:20 → C.9E 16:28 → C.3T 17:04 → C.6T 22:21
PROVIDERS: ADMIT Internal Medicine; ATTEND Internal Medicine
DX: J44.0 Chronic obstructive pulmonary disease with (acute) lower respiratory infection (principal); J18.9 Pneumonia, unspecified organism; J44.1 Chronic obstructive pulmonary disease with (acute) exacerbation; E11.65 Type 2 diabetes mellitus with hyperglycemia; E86.0 Dehydration; I10 Essential (primary) hypertension; B37.9 Candidiasis, unspecified; E78.5 Hyperlipidemia, unspecified; F41.9 Anxiety disorder, unspecified; G47.00 Insomnia, unspecified; F17.210 Nicotine dependence, cigarettes, uncomplicated; Z90.710 Acquired absence of both cervix and uterus

== ENCOUNTER 2018-03-24 13:16 | Emergency (ER) | payer MEDICAID, OTHER ==
[2018-03-24] MEDS ORDERED: Naproxen 550 mg Tab PO STA (13:55)
[2018-03-24] MEDS ORDERED: Naproxen 550 mg Tab PO ONE (14:01)
--- NOTE | 2018-03-24 14:29 | C.PDOC ---
History Of Present Illness 62-year-old female presents to the emergency department with complaints of non- traumatic lower back pain that started yesterday. Pain is right sided and non- radiating, and began after she twisted her back the "wrong" way yesterday. Patient took Naprosyn with minimal relief prompting visit. Patient denies dysuria/hematuria, neck pain, dizziness, abdominal pain, fever or any other associated symptoms. Time Seen by Provider: 03/24/18 13:40 Chief Complaint (Nursing): Back Pain History Per: Patient History/Exam Limitations: no limitations Onset/Duration Of Symptoms: Days (1) Current Symptoms Are (Timing): Still Present Quality Of Discomfort: "Pain" Severity: Moderate Past Medical History Reviewed: Historical Data, Nursing Documentation, Vital Signs Vital Signs: Last Vital Signs Temp 98.1 F 03/24/18 14:33 Pulse 86 03/24/18 14:33 Resp 18 03/24/18 14:33 BP 168/74 H 03/24/18 14:33 Pulse Ox 97 03/24/18 16:32 - Medical History PMH: Anxiety, HTN Family History: States: No Known Family Hx - Social History Hx Alcohol Use: No Hx Substance Use: No - Immunization History Hx Tetanus Toxoid Vaccination: No Hx Influenza Vaccination: No Hx Pneumococcal Vaccination: No Review Of Systems Constitutional: Negative for: Fever, Chills Cardiovascular: Negative for: Chest Pain Respiratory: Negative for: Cough, Shortness of Breath Gastrointestinal: Negative for: Nausea, Vomiting, Abdominal Pain, Diarrhea Genitourinary: Negative for: Dysuria, Hematuria, Vaginal Discharge, Vaginal Bleeding Musculoskeletal: Positive for: Back Pain Physical Exam - Physical Exam Appears: Well, Non-toxic, No Acute Distress Skin: Normal Color, Warm, Dry, No Rash Head: Normacephalic Oral Mucosa: Moist Neck: Normal, Normal ROM Chest: Symmetrical Cardiovascular: Rhythm Regular Respiratory: Normal Breath Sounds, No Rales, No Rhonchi, No Wheezing Gastrointestinal/Abdominal: Normal Exam, Bowel Sounds, Soft, No Tenderness Back: No CVA Tenderness, No Vertebral Tenderness, Paraspinal Tenderness (right sided lumbar) Extremity: Normal ROM Neurological/Psych: Oriented x3, Normal Motor, Normal Sensation Gait: Steady ED Course And Treatment O2 Sat by Pulse Oximetry: 97 (RA) Pulse Ox Interpretation: Normal Progress Note: Patient given PO Naprosyn and Flexeril. Reevaluation Time: 14:25 Reassessment Condition: Improved (On reassessment, patient is resting comfortably and states her pain has improved. She is ambulating normally in ED. Rxs for naprosyn and flexeril given, and patiet instructed to follow up with PMD/clinic in 1-2 days. She understands she should return to ED if symptoms worsen.) Disposition Counseled Patient/Family Regarding: Diagnosis, Need For Followup, Rx Given - Disposition Referrals: Zeyad Donis MD [Staff Provider] - Disposition: HOME/ ROUTINE Disposition Time: 14:25 Condition: STABLE Additional Instructions: FOLLOW UP WITH YOUR DOCTOR IN 1-2 DAYS USE MEDICATIONS NEEDED RETURN TO ER IF SYMPTOMS WORSEN Prescriptions: Cyclobenzaprine [Flexeril] 10 mg PO BID PRN #15 tab PRN Reason: Muscle Spasm Naproxen 375 mg PO BID PRN #20 tablet PRN Reason: pain Instructions: Low Back Pain (DC) Forms: [employer] (Kazakh) Print Language: YI - POA Present On Arrival: None - Clinical Impression Clinical Impression: Low back pain - Scribe Statement The provider has reviewed the documentation as recorded by the Scribe (Marleny Pillai) All medical record entries made by the Scribe were at my direction and personally dictated by me. I have reviewed the chart and agree that the record accurately reflects my personal performance of the history, physical exam, medical decision making, and the department course for this patient. I have also personally directed, reviewed, and agree with the discharge instructions and disposition.
[2018-03-24 14:33] VITALS: BP 168/74; PULSE 86; RESP 18; TEMP 98.1
[2018-03-24 14:37] VITALS: O2SAT 97
== END 2018-03-24 14:40 | disposition home or self-care (01) ==
LOC: C.ER 13:16
DX: M54.5 Low back pain (principal)

== ENCOUNTER 2018-06-21 16:46 | Observation (INO) | payer MEDICAID, OTHER ==
[2018-06-21 16:59] VITALS: BMI 35.6
[2018-06-21 18:57] LABS: BASO # 0.1 K/uL (0.0-0.2); EOS # 0.3 K/uL (0.0-0.7); EOS % 3.1 % (0.0-4.0); HEMOGLOBIN 13.5 g/dL (11.0-16.0); LYMPH # 4.5 K/uL (1.0-4.3); LYMPH % 46.4 % (20.0-40.0); MEAN CELL VOLUME 84.2 fL (81.0-99.0); MEAN CORPUSCULAR HEMOGLOBIN 28.4 pg (27.0-31.0); MEAN CORPUSCULAR HGB CONC 33.8 g/dL (33.0-37.0); MEAN PLATELET VOLUME 9.3 fL (7.2-11.7); MONO # 0.7 K/uL (0.0-0.8); MONO % 6.9 % (0.0-10.0); NEUT # 4.1 K/uL (1.8-7.0); NEUT % 42.6 % (50.0-75.0); NRBC % 0.1 % (0.0-2.0); RBC 4.76 Mil/uL (3.80-5.20); RED CELL DISTRIBUTION WIDTH 14.8 % (11.5-14.5); WHITE BLOOD COUNT 9.7 K/uL (4.8-10.8)
[2018-06-21 19:08] LABS: ALB/GLOB RATIO 1.5 (1.0-2.1); ALBUMIN 4.2 g/dL (3.5-5.0); ALT/SGPT 32 U/L (9-52); AST/SGOT 21 U/L (14-36); BLOOD UREA NITROGEN 16 mg/dL (7-17); CALCIUM 9.7 mg/dl (8.6-10.4); GFR AFRICAN-AMERICAN > 60; GFR NON-AFRICAN AMERICAN 56
[2018-06-21 19:20] LABS: B-TYPE NATRIURETIC PEPTIDE 37.4 pg/mL (0-900)
--- NOTE | 2018-06-21 20:27 | C.PDOC ---
History Of Present Illness 62yo female, referred to ER by Dr. Donis for evaluation as patient has had intermittent episodes of chest pain for the past 3 days. She also reports occasional bouts of sweats and has minimal coughing as well. She denies any fever, chills, shortness of breath, and offers no additional medical complaints. Time Seen by Provider: 06/21/18 18:30 Chief Complaint (Nursing): Chest Pain History Per: Patient History/Exam Limitations: no limitations Onset/Duration Of Symptoms: Days (3), Intermittent Episodes Past Medical History Reviewed: Historical Data, Nursing Documentation, Vital Signs Vital Signs: Last Vital Signs Temp 98.0 F 06/21/18 22:25 Pulse 83 06/21/18 22:25 Resp 20 06/21/18 22:25 BP 169/88 H 06/21/18 22:25 Pulse Ox 95 06/21/18 22:25 - Medical History PMH: Anxiety, Asthma, HTN Surgical History: No Surg Hx Family History: States: Unknown Family Hx - Social History Hx Alcohol Use: No Hx Substance Use: No - Immunization History Hx Tetanus Toxoid Vaccination: No Hx Influenza Vaccination: No Hx Pneumococcal Vaccination: No Review Of Systems Except As Marked, All Systems Reviewed And Found Negative. Constitutional: Positive for: Sweats. Negative for: Fever, Chills Cardiovascular: Positive for: Chest Pain Respiratory: Positive for: Cough. Negative for: Shortness of Breath Gastrointestinal: Negative for: Nausea, Vomiting Physical Exam - Physical Exam Appears: Non-toxic, No Acute Distress Skin: Warm, Dry, No Diaphoretic Head: Atraumatic, Normacephalic Eye(s): bilateral: Normal Inspection Neck: Normal ROM, Supple Chest: Symmetrical, No Deformity, No Tenderness Cardiovascular: Rhythm Regular Respiratory: Normal Breath Sounds Gastrointestinal/Abdominal: Normal Exam, No Tenderness Back: Normal Inspection Extremity: Normal ROM, No Pedal Edema Neurological/Psych: Oriented x3 ED Course And Treatment - Laboratory Results Result Diagrams: 06/21/18 18:53 06/21/18 18:53 ECG: Interpreted By Me, Viewed By Me ECG Rhythm: Sinus Rhythm Interpretation Of ECG: Normal axis, normal intervals, no ST/T changes Rate From EC O2 Sat by Pulse Oximetry: 100 (RA) Pulse Ox Interpretation: Normal Medical Decision Making Medical Decision Making: Plan: -- Labs -- EKG -- CXR -- Aspirin 325mg PO Disposition - Disposition Disposition: HOSPITALIZED Disposition Time: 19:00 Condition: STABLE - Clinical Impression Clinical Impression: Chest pain - Scribe Statement The provider has reviewed the documentation as recorded by the Kristin Dawkins Provider Attestation: All medical record entries made by the Kristin were at my direction and personally dictated by me. I have reviewed the chart and agree that the record accurately reflects my personal performance of the history, physical exam, medical decision making, and the department course for this patient. I have also personally directed, reviewed, and agree with the discharge instructions and disposition.
[2018-06-21 20:31] LABS: T3 1.36 nmol/L (1.49-2.60)
[2018-06-21] MEDS ORDERED: LORAZEPAM PO PRN (22:43)
[2018-06-21] MEDS ORDERED: Naproxen 275 mg Tab PO PRN (22:43)
--- NOTE | 2018-06-22 00:25 | CP.PCM.HP ---
Past Patient History - Past Medical History & Family History Past Medical History?: Yes - Past Social History Smoking Status: Light Smoker < 10 Cigarettes Daily - CARDIAC Hx Hypertension: Yes - PULMONARY Hx Asthma: Yes - ENDOCRINE/METABOLIC Hx Endocrine Disorders: Yes Hx Diabetes Mellitus Type 2: Yes - MUSCULOSKELETAL/RHEUMATOLOGICAL Hx Falls: No - PSYCHIATRIC Hx Anxiety: Yes Hx Substance Use: No - SURGICAL HISTORY Hx Surgeries: Yes Hx Hysterectomy: Yes - ANESTHESIA Hx Anesthesia: Yes Hx Anesthesia Reactions: No Meds Allergies/Adverse Reactions: Allergies Allergy/AdvReac Type Severity Reaction Status Date / Time Penicillins Allergy Verified 06/21/18 16:58 Results - Vital Signs Recent Vital Signs: Last Vital Signs Temp 98.0 F 06/21/18 22:25 Pulse 83 06/21/18 22:25 Resp 20 06/21/18 22:25 BP 169/88 H 06/21/18 22:25 Pulse Ox 95 06/21/18 22:25 - Labs Result Diagrams: 06/21/18 18:53 06/21/18 18:53 Labs: Laboratory Results - last 24 hr 06/21/18 06/21/18 06/21/18 18:53 18:53 19:12 WBC 9.7 RBC 4.76 Hgb 13.5 Hct 40.1 MCV 84.2 MCH 28.4 MCHC 33.8 RDW 14.8 H Plt Count 212 MPV 9.3 Neut % (Auto) 42.6 L Lymph % (Auto) 46.4 H [place] % (Auto) 6.9 Eos % (Auto) 3.1 Baso % (Auto) 1.0 Neut # (Auto) 4.1 Lymph # (Auto) 4.5 H [place] # (Auto) 0.7 Eos # (Auto) 0.3 Baso # (Auto) 0.1 Sodium 144 Potassium 3.9 Chloride 108 H Carbon Dioxide 22 Anion Gap 17 BUN 16 Creatinine 1.0 Est GFR ( Amer) > 60 Est GFR (Non-Af Amer) 56 Random Glucose 146 H Calcium 9.7 Total Bilirubin 0.5 AST 21 ALT 32 Alkaline Phosphatase 114 Troponin I < 0.0120 NT-Pro-B Natriuret Pep 37.4 Total Protein 7.1 Albumin 4.2 Globulin 2.9 Albumin/Globulin Ratio 1.5 Total T3 1.36 L TSH 3rd Generation 0.31 L
[2018-06-22 08:06] VITALS: RESP 20
[2018-06-22 08:21] LABS: CK-MB 0.58 ng/mL (0.0-3.38)
[2018-06-22] MEDS: (Novolog) Insulin Aspart, Recombinant 100 u/ml 10 ml vial SC SCH ×4 (09:16→22:32)
[2018-06-22] MEDS ORDERED: METFORMIN HYDROCHLORIDE PO SCH (10:00)
[2018-06-22] MEDS: Pantoprazole 40 mg EC Tab PO SCH (10:35)
[2018-06-22] MEDS: Enoxaparin 40 mg Syringe SC SCH (10:36)
--- NOTE | 2018-06-22 20:21 | CP.PCM.CON ---
History of Present Illness - History of Present Illness History of Present Illness: 62 year old with DM, ? COPD 2017 echo was with normal LV contractility, yet with significant PAH with PA pressure of 50 was followed by Pulm, at this time admitted with atypical CP, no acute EKG changes, TNI neg. No CA TSH minimally low. needs EST, to evaluate CAD, can be done as outpt. Review of Systems - Review of Systems Systems not reviewed;Unavailable: Acuity of Condition - Constitutional Constitutional: Anorexia, Weakness - EENT Eyes: absent: Discharge Ears: absent: Ear Discharge, Dizziness Nose/Mouth/Throat: absent: Epistaxis - Cardiovascular Cardiovascular: Chest Pain. absent: Acrocyanosis, Diaphoresis, Palpitations, Syncope - Respiratory Respiratory: Dyspnea. absent: Cough, Hemoptysis - Gastrointestinal Gastrointestinal: absent: Abdominal Pain, Diarrhea, Vomiting - Genitourinary Genitourinary: absent: Change in Urinary Stream Past Patient History - Past Medical History & Family History Past Medical History?: Yes - Past Social History Smoking Status: Light Smoker < 10 Cigarettes Daily - CARDIAC Hx Hypertension: Yes - PULMONARY Hx Asthma: Yes - ENDOCRINE/METABOLIC Hx Endocrine Disorders: Yes Hx Diabetes Mellitus Type 2: Yes - MUSCULOSKELETAL/RHEUMATOLOGICAL Hx Falls: No - PSYCHIATRIC Hx Anxiety: Yes Hx Substance Use: No - SURGICAL HISTORY Hx Surgeries: Yes Hx Hysterectomy: Yes - ANESTHESIA Hx Anesthesia: Yes Hx Anesthesia Reactions: No Meds Allergies/Adverse Reactions: Allergies Allergy/AdvReac Type Severity Reaction Status Date / Time Penicillins Allergy Verified 06/21/18 16:58 - Medications Medications: Current Medications Aspirin (Ecotrin) 81 mg PO DAILY [facility] Last Admin: 06/22/18 10:35 Dose: 81 mg Enoxaparin Sodium (Lovenox) 40 mg SC DAILY [facility] Last Admin: 06/22/18 10:36 Dose: Not Given Gabapentin (Neurontin) 300 mg PO BID [facility] Last Admin: 06/22/18 18:04 Dose: 300 mg Insulin Aspart (Novolog) 0 unit SC ACHS [facility] PRN Reason: Protocol Last Admin: 06/22/18 18:05 Dose: Not Given Levothyroxine Sodium (Synthroid) 125 mcg PO DAILY@0630 [facility] Lisinopril (Zestril) 20 mg PO DAILY [facility] Last Admin: 06/22/18 10:35 Dose: 20 mg Lorazepam (Ativan) 0.5 mg PO TID PRN PRN Reason: Anxiety Metformin HCl (Glucophage) 500 mg PO BID [facility] Last Admin: 06/22/18 18:06 Dose: Not Given Naproxen (Anaprox) 375 mg PO BID PRN PRN Reason: pain Pantoprazole Sodium (Protonix Ec Tab) 40 mg PO DAILY [facility] Last Admin: 06/22/18 10:35 Dose: 40 mg Rosuvastatin Calcium (Crestor) 5 mg PO HS [facility] Temazepam (Restoril) 30 mg PO HS [facility] Last Admin: 06/21/18 23:30 Dose: Not Given Physical Exam - Constitutional Appears: Non-toxic - Head Exam Head Exam: ATRAUMATIC - Eye Exam Eye Exam: EOMI - ENT Exam ENT Exam: Mucous Membranes Moist - Neck Exam Neck exam: Negative for: Lymphadenopathy, Thyromegaly - Respiratory Exam Respiratory Exam: Clear to Auscultation Bilateral, Rhonchi - Cardiovascular Exam Cardiovascular Exam: REGULAR RHYTHM, Systolic Murmur - GI/Abdominal Exam GI & Abdominal Exam: Normal Bowel Sounds. absent: Organomegaly - Rectal Exam Rectal Exam: Deferred - Extremities Exam Extremities exam: Positive for: normal capillary refill. Negative for: calf tenderness - Neurological Exam Neurological exam: Alert, Oriented x3 - Psychiatric Exam Psychiatric exam: Normal Mood - Skin Skin Exam: Dry Results - Vital Signs Recent Vital Signs: Last Vital Signs Temp 98 F 06/22/18 16:00 Pulse 68 06/22/18 16:19 Resp 20 06/22/18 16:00 BP 163/79 H 06/22/18 16:00 Pulse Ox 97 06/22/18 16:00 - Labs Result Diagrams: 06/21/18 18:53 06/21/18 18:53 Labs: Laboratory Results - last 24 hr 06/21/18 06/22/18 19:12 07:19 Total Creatine Kinase 92 CK-MB (Mass) 0.58 Troponin I < 0.0120 Total T3 1.36 L TSH 3rd Generation 0.31 L Assessment & Plan (1) Pulmonary hypertension Status: Acute (2) Chest pain Status: Acute Comment: no CA, PAH (3) Diabetes mellitus Status: Chronic
--- NOTE | 2018-06-22 20:56 | RAD ---
Date of service: 06/21/2018 PROCEDURE: CHEST RADIOGRAPH, 1 VIEW HISTORY: chest pain COMPARISON: Comparison is made with 08/02/2017 FINDINGS: LUNGS: No evidence of a new infiltrate or consolidation in the lungs. Suboptimal portable exam. PLEURA: No pneumothorax or pleural fluid seen. CARDIOVASCULAR: Normal. OSSEOUS STRUCTURES: No significant abnormalities. VISUALIZED UPPER ABDOMEN: Normal. OTHER FINDINGS: None. IMPRESSION: Suboptimal portable study. No definite evidence of new infiltrate or consolidation in the lungs.
[2018-06-23] MEDS ORDERED: Levothyroxine 125 MCG TAB PO SCH (06:30)
[2018-06-23] MEDS: (Novolog) Insulin Aspart, Recombinant 100 u/ml 10 ml vial SC SCH ×2 (06:31→12:24)
[2018-06-23 08:21] VITALS: TEMP 97.9; O2SAT 96
[2018-06-23 10:43] VITALS: BP 146/87; PULSE 67
[2018-06-23] MEDS: Enoxaparin 40 mg Syringe SC SCH ×2 (10:43→10:45)
[2018-06-23] MEDS: Pantoprazole 40 mg EC Tab PO SCH (10:44)
[2018-06-23] MEDS ORDERED: Naproxen 275 mg Tab PO PRN (12:30)
--- NOTE | 2018-06-23 21:25 | CP.PCM.PN ---
Subjective - Date & Time of Evaluation Date of Evaluation: 06/22/18 Time of Evaluation: 20:35 - Subjective Subjective: Pt seen and examined at bedside, have persistant chest pain, echo was with normal LV contractility, yet with significant PAH with PA pressure of 50 was followed by Pulm, at this time admitted with atypical CP, no acute EKG changes, TNI neg. No RI TSH minimally low. needs EST, to evaluate CAD, can be done as outpt. Objective - Vital Signs/Intake and Output Vital Signs (last 24 hours): Temp Pulse Resp BP Pulse Ox 97.9 F 67 20 146/87 96 06/23/18 07:20 06/23/18 10:42 06/23/18 07:20 06/23/18 10:42 06/23/18 07:20 - Labs Labs: 06/21/18 18:53 06/21/18 18:53 - Constitutional Appears: No Acute Distress - Head Exam Head Exam: ATRAUMATIC, NORMAL INSPECTION, NORMOCEPHALIC - Eye Exam Eye Exam: EOMI, Normal appearance, PERRL Pupil Exam: NORMAL ACCOMODATION, PERRL - ENT Exam ENT Exam: Mucous Membranes Moist, Normal Exam - Neck Exam Neck Exam: Full ROM, Normal Inspection. absent: Lymphadenopathy - Respiratory Exam Respiratory Exam: Clear to Ausculation Bilateral, NORMAL BREATHING PATTERN - Cardiovascular Exam Cardiovascular Exam: REGULAR RHYTHM, +S1, +S2. absent: Murmur - GI/Abdominal Exam GI & Abdominal Exam: Soft, Normal Bowel Sounds. absent: Tenderness - Rectal Exam Rectal Exam: Deferred Assessment and Plan (1) COPD exacerbation Status: Acute (2) Chest pain Status: Acute (3) Diabetes mellitus Status: Chronic (4) Hypertension Status: Chronic
--- NOTE | 2018-06-23 21:27 | CP.PCM.DIS ---
Provider - Provider Date of Admission: 06/21/18 19:55 Attending physician: Zeyad Donis MD Time Spent in preparation of Discharge (in minutes): 55 Diagnosis - Discharge Diagnosis (1) COPD exacerbation Status: Acute (2) Chest pain Status: Acute (3) Diabetes mellitus Status: Chronic (4) Hypertension Status: Chronic Hospital Course - Lab Results Lab Results: Most Recent Lab Values WBC 9.7 K/uL (4.8-10.8) 06/21/18 18:53 RBC 4.76 Mil/uL (3.80-5.20) 08 18:53 Hgb 13.5 g/dL (11.0-16.0) 06/21/18 18:53 Hct 40.1 % (34.0-47.0) 06/21/18 18:53 MCV 84.2 fL (81.0-99.0) 06/21/18 18:53 MCH 28.4 pg (27.0-31.0) 06/21/18 18:53 MCHC 33.8 g/dL (33.0-37.0) 06/21/18 18:53 RDW 14.8 % (11.5-14.5) H 06/21/18 18:53 Plt Count 212 K/uL (130-400) 06/21/18 18:53 MPV 9.3 fL (7.2-11.7) 06/21/18 18:53 Neut % (Auto) 42.6 % (50.0-75.0) L 06/21/18 18:53 Lymph % (Auto) 46.4 % (20.0-40.0) H 06/21/18 18:53 [place] % (Auto) 6.9 % (0.0-10.0) 06/21/18 18:53 Eos % (Auto) 3.1 % (0.0-4.0) 06/21/18 18:53 Baso % (Auto) 1.0 % (0.0-2.0) 06/21/18 18:53 Neut # (Auto) 4.1 K/uL (1.8-7.0) 06/21/18 18:53 Lymph # (Auto) 4.5 K/uL (1.0-4.3) H 08/10/18 18:53 [place] # (Auto) 0.7 K/uL (0.0-0.8) 06/21/18 18:53 Eos # (Auto) 0.3 K/uL (0.0-0.7) 06/21/18 18:53 Baso # (Auto) 0.1 K/uL (0.0-0.2) 06/21/18 18:53 Sodium 144 mmol/L (132-148) 06/21/18 18:53 Potassium 3.9 mmol/L (3.6-5.2) 06/21/18 18:53 Chloride 108 mmol/L (98-107) H 06/21/18 18:53 Carbon Dioxide 22 mmol/L (22-30) 06/21/18 18:53 Anion Gap 17 (10-20) 06/21/18 18:53 BUN 16 mg/dL (7-17) 06/21/18 18:53 Creatinine 1.0 mg/dL (0.7-1.2) 06/21/18 18:53 Est GFR ( Amer) > 60 06/21/18 18:53 Est GFR (Non-Af Amer) 56 06/21/18 18:53 Random Glucose 146 mg/dL (65-105) H 06/21/18 18:53 Calcium 9.7 mg/dl (8.6-10.4) 06/21/18 18:53 Total Bilirubin 0.5 mg/dL (0.2-1.3) 06/21/18 18:53 AST 21 U/L (14-36) 06/21/18 18:53 ALT 32 U/L (9-52) 06/21/18 18:53 Alkaline Phosphatase 114 U/L (38-126) 06/21/18 18:53 Total Creatine Kinase 92 U/L (30-135) 06/22/18 07:19 CK-MB (Mass) 0.58 ng/mL (0.0-3.38) 06/22/18 07:19 Troponin I < 0.0120 ng/mL (0.00-0.120) 06/22/18 07:19 NT-Pro-B Natriuret Pep 37.4 pg/mL (0-900) 06/21/18 18:53 Total Protein 7.1 g/dL (6.3-8.3) 06/21/18 18:53 Albumin 4.2 g/dL (3.5-5.0) 06/21/18 18:53 Globulin 2.9 gm/dL (2.2-3.9) 06/21/18 18:53 Albumin/Globulin Ratio 1.5 (1.0-2.1) 06/21/18 18:53 Total T3 1.36 nmol/L (1.49-2.60) L 06/21/18 19:12 TSH 3rd Generation 0.31 mIU/L (0.46-4.68) L 06/21/18 19:12 - Hospital Course Hospital Course: Pt is stable for discharge ,echo was with normal LV contractility, yet with significant PAH with PA pressure of 50 was followed by Pulm, at this time admitted with atypical CP, no acute EKG changes, TNI neg. No [place] TSH minimally low. needs EST, to evaluate CAD, can be done as outpt. Discharge Exam - Head Exam Head Exam: ATRAUMATIC, NORMAL INSPECTION, NORMOCEPHALIC - Eye Exam Eye Exam: EOMI, Normal appearance, PERRL Pupil Exam: NORMAL ACCOMODATION, PERRL - ENT Exam ENT Exam: Mucous Membranes Moist - Respiratory Exam Respiratory Exam: Clear to PA & Lateral, NORMAL BREATHING PATTERN - Cardiovascular Exam Cardiovascular Exam: REGULAR RHYTHM, +S1, +S2 - GI/Abdominal Exam GI & Abdominal Exam: Normal Bowel Sounds - Rectal Exam Rectal Exam: Deferred Discharge Plan - Follow Up Plan Condition: STABLE Disposition: HOME/ ROUTINE Instructions: Type 2 Diabetes, Pneumonia, Adult (DC), Chest Pain (DC), Pulmonary Hypertension, Adult (DC) Referrals: Zeyad Donis MD [Staff Provider] -
--- NOTE | 2018-06-23 22:36 | CP.PCM.PN ---
Subjective - Date & Time of Evaluation Date of Evaluation: 06/23/18 Time of Evaluation: 12:00 - Subjective Subjective: improved SOB, medical treatment Objective - Vital Signs/Intake and Output Vital Signs (last 24 hours): Temp Pulse Resp BP Pulse Ox 97.9 F 67 20 146/87 96 06/23/18 07:20 06/23/18 10:42 06/23/18 07:20 06/23/18 10:42 06/23/18 07:20 - Labs Labs: 06/21/18 18:53 06/21/18 18:53 - Constitutional Appears: Non-toxic - Head Exam Head Exam: ATRAUMATIC - Eye Exam Eye Exam: EOMI - ENT Exam ENT Exam: Mucous Membranes Moist - Neck Exam Neck Exam: absent: Lymphadenopathy, Thyromegaly - Respiratory Exam Respiratory Exam: Clear to Ausculation Bilateral, Rhonchi - Cardiovascular Exam Cardiovascular Exam: REGULAR RHYTHM, Murmur - GI/Abdominal Exam GI & Abdominal Exam: Normal Bowel Sounds. absent: Organomegaly - Rectal Exam Rectal Exam: Deferred - Extremities Exam Extremities Exam: Normal Capillary Refill. absent: Calf Tenderness - Neurological Exam Neurological Exam: Alert, Oriented x3 - Psychiatric Exam Psychiatric exam: Anxious - Skin Skin Exam: Dry Assessment and Plan (1) Pulmonary hypertension Status: Acute (2) Chest pain Status: Acute (3) Diabetes mellitus Status: Chronic
== END 2018-06-23 12:30 | disposition home or self-care (01) ==
LOC: C.ER 16:46 → C.9E 19:55 → C.5S 21:55
PROVIDERS: ADMIT Internal Medicine; ATTEND Internal Medicine
DX: J44.1 Chronic obstructive pulmonary disease with (acute) exacerbation (principal); I10 Essential (primary) hypertension; E11.9 Type 2 diabetes mellitus without complications; I27.20 Pulmonary hypertension, unspecified; Z87.891 Personal history of nicotine dependence; Z90.710 Acquired absence of both cervix and uterus
CPT/HCPCS: 36415; 71045; 80053; 83880; 84443; 84480; 84484; 85025; 99285; G0378

== ENCOUNTER 2018-12-30 16:35 | Observation (INO) | payer MEDICAID ==
[2018-12-30 16:36] VITALS: BMI 35.6
[2018-12-30] MEDS ORDERED: Aspirin 325 mg EC Tablets PO STA (17:03)
[2018-12-30] MEDS ORDERED: Aspirin 325 mg EC Tablets PO ONE (17:24)
[2018-12-30 17:42] LABS: BASO # 0.1 K/uL (0.0-0.2); LYMPH # 3.1 K/uL (1.0-4.3); MONO # 0.6 K/uL (0.0-0.8)
[2018-12-30 17:44] LABS: BASO % 1.2 % (0.0-2.0); EOS # 0.3 K/uL (0.0-0.7); EOS % 3.7 % (0.0-4.0); HEMOGLOBIN 14.3 g/dL (11.0-16.0); LYMPH % 46.2 % (20.0-40.0); MEAN CELL VOLUME 85.6 fL (81.0-99.0); MEAN CORPUSCULAR HEMOGLOBIN 27.9 pg (27.0-31.0); MEAN CORPUSCULAR HGB CONC 32.7 g/dL (33.0-37.0); MEAN PLATELET VOLUME 9.3 fL (7.2-11.7); MONO % 8.4 % (0.0-10.0); NEUT # 2.7 K/uL (1.8-7.0); NEUT % 40.5 % (50.0-75.0); NRBC % 0.1 % (0.0-2.0); RBC 5.11 Mil/uL (3.80-5.20); WHITE BLOOD COUNT 6.7 K/uL (4.8-10.8)
[2018-12-30 17:50] LABS: SQUAMOUS EPITHIAL 5 /hpf (0-5); URINE BACTERIA RARE (<OCC); URINE BILIRUBIN NEGATIVE (NEGATIVE); URINE BLOOD NEGATIVE (NEGATIVE); URINE CLARITY Clear (Clear); URINE COLOR Straw (YELLOW); URINE GLUCOSE (UA) NORMAL (Normal); URINE LEUKOCYTE ESTERASE NEG Leu/uL (Negative); URINE PROTEIN NEGATIVE (NEGATIVE); URINE UROBILINOGEN NORMAL mg/dL (0.2-1.0)
[2018-12-30 17:53] LABS: ALBUMIN 4.3 g/dL (3.5-5.0); BLOOD UREA NITROGEN 20 mg/dL (7-17); CALCIUM 9.4 mg/dl (8.6-10.4); GFR NON-AFRICAN AMERICAN 45
[2018-12-30 17:54] LABS: ALB/GLOB RATIO 1.5 (1.0-2.1); ALT/SGPT 27 U/L (9-52); AST/SGOT 27 U/L (14-36)
--- NOTE | 2018-12-30 17:58 | RAD ---
Date of service: 12/30/2018 HISTORY: chest pain COMPARISON: 06.21.18 TECHNIQUE: Chest PA and lateral FINDINGS: LUNGS: No active pulmonary disease. PLEURA: No significant pleural effusion identified. No pneumothorax apparent. CARDIOVASCULAR: Atherosclerotic calcifications identified primarily aortic arch. No radiographic findings to suggest acute or significant cardiovascular disease. OSSEOUS STRUCTURES: No significant abnormalities. VISUALIZED UPPER ABDOMEN: Normal. OTHER FINDINGS: None. IMPRESSION: No active disease. No significant interval change compared to the prior examination(s).
--- NOTE | 2018-12-30 18:02 | C.PDOC ---
History Of Present Illness 63 year old female, whose past medical history includes anxiety, asthma and hypertension, presents to the ED for evaluation of chest pain which began around 3 days ago. Patient initially thought her pain was caused by gas, and was taking Gas-X without relief. Patient states the pain started radiating to her left arm today, prompting visit. She describes her pain as a pressure-like sensation that is 8/10 in severity. She reports associated shortness of breath, weakness, diaphoresis, and dizziness. She states her pain is worse with lying down. Patient took Aspirin and two Advils this morning without relief. Patient denies fever, chills, headache, nausea, vomiting, and abdominal pain. PMD: Dr. Zeyad Donis Chief Complaint (Nursing): Chest Pain History Per: Patient History/Exam Limitations: no limitations Onset/Duration Of Symptoms: Days (3) Current Symptoms Are (Timing): Worse Quality: "Pain" Associated Symptoms: Nausea, Diaphoresis Exacerbating Factors: Other (lying down ) Additional History Per: Patient Past Medical History Reviewed: Historical Data, Nursing Documentation, Vital Signs Vital Signs: Last Vital Signs Temp 97.7 F 12/30/18 16:41 Pulse 78 12/30/18 16:41 Resp 20 12/30/18 16:41 BP 172/85 H 12/30/18 16:41 Pulse Ox 96 12/30/18 16:41 - Medical History PMH: Anxiety, Asthma, HTN Surgical History: No Surg Hx Family History: States: Unknown Family Hx - Social History Hx Alcohol Use: No Hx Substance Use: No - Immunization History Hx Tetanus Toxoid Vaccination: No Hx Influenza Vaccination: No Hx Pneumococcal Vaccination: No Review Of Systems Constitutional: Positive for: Weakness, Other (diaphoresis ). Negative for: Fever, Chills Cardiovascular: Positive for: Chest Pain Respiratory: Positive for: Shortness of Breath Gastrointestinal: Negative for: Nausea, Vomiting Musculoskeletal: Positive for: Arm Pain (left) Neurological: Negative for: Headache Physical Exam - Physical Exam Appears: Non-toxic, No Acute Distress Skin: Normal Color, Warm, Dry Head: Atraumatic, Normacephalic Eye(s): bilateral: Normal Inspection Oral Mucosa: Moist Neck: Supple Chest: Symmetrical, No Deformity, No Tenderness Cardiovascular: Rhythm Regular, No Murmur Respiratory: Normal Breath Sounds, No Rales, No Rhonchi, No Wheezing Gastrointestinal/Abdominal: Soft, No Tenderness Back: No CVA Tenderness Extremity: Normal ROM, Capillary Refill (less than 2 seconds ) Neurological/Psych: Oriented x3, Normal Speech, Normal Cognition ED Course And Treatment - Laboratory Results Result Diagrams: 12/30/18 17:39 12/30/18 17:39 Lab Results: Total Bilirubin 0.5 mg/dL (0.2-1.3) 12/30/18 17:39 AST 27 U/L (14-36) 12/30/18 17:39 ALT 27 U/L (9-52) 12/30/18 17:39 Alkaline Phosphatase 91 U/L (38-126) 12/30/18 17:39 Total Protein 7.2 g/dL (6.3-8.3) 12/30/18 17:39 Albumin 4.3 g/dL (3.5-5.0) 12/30/18 17:39 Globulin 2.8 gm/dL (2.2-3.9) 12/30/18 17:39 Albumin/Globulin Ratio 1.5 (1.0-2.1) 12/30/18 17:39 ECG: Interpreted By Me, Viewed By Me ECG Rhythm: Sinus Rhythm ECG Interpretation: No Acute Changes Rate From EC O2 Sat by Pulse Oximetry: 96 (on RA ) Pulse Ox Interpretation: Normal - Other Rad CXR X-Ray: Viewed By Me, Read By Radiologist Interpretation: Date of service: 12/30/2018. HISTORY: chest pain. COMPARISON: 06.21.18. TECHNIQUE: Chest PA and lateral. FINDINGS: LUNGS: No active pulmonary disease. PLEURA: No significant pleural effusion identified. No pneumothorax apparent. CARDIOVASCULAR: Atherosclerotic calcifications identified primarily aortic arch. No radiographic findings to suggest acute or significant cardiovascular disease. OSSEOUS STRUCTURES: No significant abnormalities. VISUALIZED UPPER ABDOMEN: Normal. OTHER FINDINGS: None. IMPRESSION: No active disease. No significant interval change compared to the prior examination(s). Medical Decision Making Medical Decision Making: Progress: Bloodwork, urinalysis, CXR, EKG ordered and reviewed. Aspirin PO given. CXR and labs reviewed with Dr. Donis and will admit patient for observation Patient verbalized understanding and is in agreement with plan Disposition Discussed With : Zeyad Donis Counseled Patient/Family Regarding: Studies Performed, Diagnosis, Need For Followup - Disposition Disposition: HOSPITALIZED Disposition Time: 18:07 Condition: FAIR - Clinical Impression Clinical Impression: Chest pain, Hypertension, Diabetes mellitus - PA / FAVOR MAKER / Resident Statement MD/DO has reviewed & agrees with the documentation as recorded. - Scribe Statement The provider has reviewed the documentation as recorded by the Scribe (Monserrat Carrillo) All medical record entries made by the Scribe were at my direction and personally dictated by me. I have reviewed the chart and agree that the record accurately reflects my personal performance of the history, physical exam, medical decision making, and the department course for this patient. I have also personally directed, reviewed, and agree with the discharge instructions and disposition.
[2018-12-30 18:06] LABS: B-TYPE NATRIURETIC PEPTIDE 73.3 pg/mL (0-900)
[2018-12-30] MEDS ORDERED: Naproxen 275 mg Tab PO PRN (20:12)
--- NOTE | 2018-12-30 20:40 | CP.PCM.HP ---
Present on Admission - Present on Admission Any Indicators Present on Admission: No Past Patient History - Past Medical History & Family History Past Medical History?: Yes - Past Social History Smoking Status: Light Smoker < 10 Cigarettes Daily - CARDIAC Hx Hypertension: Yes - PULMONARY Hx Asthma: Yes - ENDOCRINE/METABOLIC Hx Endocrine Disorders: Yes Hx Diabetes Mellitus Type 2: Yes - MUSCULOSKELETAL/RHEUMATOLOGICAL Hx Falls: No - PSYCHIATRIC Hx Anxiety: Yes Hx Substance Use: No - SURGICAL HISTORY Hx Surgeries: Yes Hx Hysterectomy: Yes - ANESTHESIA Hx Anesthesia: Yes Hx Anesthesia Reactions: No Meds Allergies/Adverse Reactions: Allergies Allergy/AdvReac Type Severity Reaction Status Date / Time Penicillins Allergy Verified 12/30/18 16:43 Results - Vital Signs Recent Vital Signs: Last Vital Signs Temp 97.7 F 12/30/18 20:03 Pulse 70 12/30/18 20:03 Resp 18 12/30/18 20:03 BP 150/83 12/30/18 20:03 Pulse Ox 99 12/30/18 20:03 - Labs Result Diagrams: 12/30/18 17:39 12/30/18 17:39 Labs: Laboratory Results - last 24 hr 12/30/18 12/30/18 12/30/18 17:39 17:39 17:39 WBC 6.7 RBC 5.11 Hgb 14.3 Hct 43.7 MCV 85.6 MCH 27.9 MCHC 32.7 L RDW 15.0 H Plt Count 230 MPV 9.3 Neut % (Auto) 40.5 L Lymph % (Auto) 46.2 H [place] % (Auto) 8.4 Eos % (Auto) 3.7 Baso % (Auto) 1.2 Neut # (Auto) 2.7 Lymph # (Auto) 3.1 [place] # (Auto) 0.6 Eos # (Auto) 0.3 Baso # (Auto) 0.1 Sodium 137 Potassium 3.7 Chloride 103 Carbon Dioxide 27 Anion Gap 11 BUN 20 H Creatinine 1.2 Est GFR ( Amer) 55 Est GFR (Non-Af Amer) 45 Random Glucose 92 D Calcium 9.4 Total Bilirubin 0.5 AST 27 ALT 27 Alkaline Phosphatase 91 Troponin I < 0.0120 NT-Pro-B Natriuret Pep 73.3 Total Protein 7.2 Albumin 4.3 Globulin 2.8 Albumin/Globulin Ratio 1.5 Urine Color Straw Urine Clarity Clear Urine pH 5.0 Ur Specific [place] 1.009 Urine Protein Negative Urine Glucose (UA) Normal Urine Ketones Negative Urine Blood Negative Urine Nitrate Negative Urine Bilirubin Negative Urine Urobilinogen Normal Ur Leukocyte Esterase Neg Urine WBC (Auto) 1 Ur Squamous Epith Cells 5 Urine Bacteria Rare
[2018-12-30] MEDS ORDERED: TEMAZEPAM PO SCH (22:00)
[2018-12-30] MEDS: (Novolin R) Insulin Human Regular 100 units/ml vial SC SCH (22:38)
--- NOTE | 2018-12-31 01:02 | HP ---
CHIEF COMPLAINT: Chest pain. HISTORY OF PRESENT ILLNESS: This is a 63-year-old -[place] female, well known to me with history of ex-smoker, hypertension, hyperlipidemia, type 2 diabetes, who is compliant with her diet, medication, and followup. She has multiple medical problems including generalized anxiety disorder. She has anxiety. She has insomnia. Since yesterday, she is having left precordial chest pain which is dull in character, radiating to the left shoulder, not associated with diaphoresis. Chest pain is nonexertional, nonpositional. No pleurisy. No dyspepsia. No nausea or vomiting. The patient denies any cough, sore throat, or runny nose. She denies any fever, chills, or rigors. She denies any nausea, vomiting, or diarrhea. She denies any dyspepsia. She denies any history of hemoptysis, hematemesis, melena, or hematochezia. She denies any tingling, numbness, or paresthesias of the legs. The pain scale is 8/10. She is feeling weak. She denies any nausea or vomiting. Chest pain do increase upon left arm movements. PAST MEDICAL HISTORY: COPD, hypertension, hyperlipidemia, type 2 diabetes, anxiety, depression, and musculoskeletal problems. SOCIAL HISTORY: Ex-smoker, non-ETOH user. CURRENT MEDICATIONS: The patient is on Zestoretic, Dyazide, Restoril, Zocor, Naprosyn, metformin, lorazepam, Synthroid, Neurontin, Flexeril . PHYSICAL EXAMINATION: GENERAL: An elderly female in no acute distress. At the moment, she denies chest pain. VITAL SIGNS: Blood pressure 129/87, pulse 66, respiratory rate 20, temperature 97.7. SKIN: No bruises. No purpura. No petechiae. No ecchymoses. HEENT: Atraumatic, normocephalic. Negative pallor. Negative jaundice. Extraocular movements are intact. NECK: Supple. No JVD. No lymph node. No thyromegaly. CHEST WALL: Bilateral symmetrical expansion. No tenderness. No deformity. BREASTS: No masses. No nipple discharge. LUNGS: Clear. No rales. No rhonchi. CARDIOVASCULAR SYSTEM: PMI not localized. S1, S2 regular. No heave. No thrill. ABDOMEN: Soft, nontender. Bowel sounds are positive. GENITALIA: Normal. No pelvic masses. RECTAL: Negative. No bleeding per rectum. CENTRAL NERVOUS SYSTEM: Awake, alert, oriented x3. Cranial nerves II through XII are normal. Power 5/5 x4. Plantars are downgoing. ASSESSMENT: 1. Chest pain, rule out myocardial infarction. It is atypical chest pain in a patient with multiple risk factors. 2. Hypertension. 3. Type 2 diabetes. 4. Hyperlipidemia. PLAN: Admit. Detailed orders are written. The patient will be followed up closely. Zeyad Dnois MD
[2018-12-31 01:16] VITALS: BP 123/68; RESP 20; TEMP 98; O2SAT 97
[2018-12-31] MEDS ORDERED: Levothyroxine 125 MCG TAB PO SCH (06:30)
[2018-12-31 06:42] LABS: CK-MB 0.71 ng/mL (0.0-3.38)
[2018-12-31] MEDS: (Novolin R) Insulin Human Regular 100 units/ml vial SC SCH ×2 (08:19→12:15)
[2018-12-31] MEDS ORDERED: METFORMIN HYDROCHLORIDE PO SCH (10:00)
[2018-12-31] MEDS ORDERED: hydroCHLOROthiazide-Triamterene 25 mg-37.5 mg Cap UD PO SCH (10:00)
[2018-12-31] MEDS ORDERED: LORAZEPAM PO SCH (10:00)
[2018-12-31] MEDS ORDERED: Enoxaparin 40 mg Syringe SC SCH (10:00)
[2018-12-31] MEDS ORDERED: LEVOTHYROXINE PO SCH (10:00)
[2018-12-31 12:39] VITALS: PULSE 67
--- NOTE | 2018-12-31 16:48 | CARD ---
APPROVED REPORT Date of service: 12/31/2018 EXAM: Two-dimensional and M-mode echocardiogram with Doppler and color Doppler. INDICATION CAD RISK FACTORS Hypertension Diabetes 2D DIMENSIONS IVSd0.9 (0.7-1.1cm)LVDd5.0 (3.9-5.9cm) PWd0.8 (0.7-1.1cm)LVDs3.3 (2.5-4.0cm) FS (%) 34.9 %LVEF (%)63.8 (>50%) LVEF (Nguyen's)57.23 % M-Mode DIMENSIONS Left Atrium (MM)3.74 (2.5-4.0cm)IVSd0.71 (0.7-1.1cm) Aortic Root3.11 (2.2-3.7cm)LVDd5.44 (4.0-5.6cm) Aortic Cusp Exc.1.94 (1.5-2.0cm)PWd0.92 (0.7-1.1cm) FS (%) 39 %LVDs3.32 (2.0-3.8cm) LVEF (%)69 (>50%) Mitral Valve MV E Intactid38.8cm/sMV A Vqcospqj59.5cm/sE/A ratio0.7 TDI Lateral E' Peak V6.29cm/sMedial E' Peak V7.51cm/sE/Lateral E'9.2 E/Medial E'7.7 LEFT VENTRICLE The left ventricle is normal size. There is normal left ventricular wall thickness. The left ventricular function is normal. The left ventricular ejection fraction is within the normal range. There is normal LV segmental wall motion. Transmitral Doppler flow pattern is Grade I-abnormal relaxation pattern. RIGHT VENTRICLE The right ventricle is normal size. There is normal right ventricular wall thickness. The right ventricular systolic function is normal. ATRIA The left atrium size is normal. The right atrium size is normal. AORTIC VALVE The aortic valve is mildly thickened. No aortic regurgitation is present. There is no aortic valvular stenosis. MITRAL VALVE The mitral valve is mildly thickened. There is no mitral valve stenosis. Mitral regurgitation is trace. TRICUSPID VALVE The tricuspid valve is normal in structure. There is no tricuspid valve regurgitation noted. PULMONIC VALVE The pulmonary valve is normal in structure. There is no pulmonic valvular regurgitation. GREAT VESSELS The aortic root is normal in size. The IVC is normal in size and collapses >50% with inspiration. PERICARDIAL EFFUSION There is no pericardial effusion. <Conclusion> There is normal left ventricular wall thickness. The left ventricular function is normal. The left ventricular ejection fraction is within the normal range. There is normal LV segmental wall motion. Transmitral Doppler flow pattern is Grade I-abnormal relaxation pattern.
--- NOTE | 2018-12-31 20:21 | CARD ---
APPROVED REPORT Date of service: 12/30/2018 EKG Measurement Heart [id number] <Conclusion> Normal sinus rhythm Septal infarct, age undetermined Abnormal ECG
--- NOTE | 2018-12-31 21:35 | CP.PCM.DIS ---
Provider - Provider Date of Admission: 12/30/18 18:07 Attending physician: Zeyad Donis MD Time Spent in preparation of Discharge (in minutes): 30 Hospital Course - Lab Results Lab Results: Most Recent Lab Values WBC 6.7 K/uL (4.8-10.8) 12/30/18 17:39 RBC 5.11 Mil/uL (3.80-5.20) 12/30/18 17:39 Hgb 14.3 g/dL (11.0-16.0) 12/30/18 17:39 Hct 43.7 % (34.0-47.0) 12/30/18 17:39 MCV 85.6 fL (81.0-99.0) 12/30/18 17:39 MCH 27.9 pg (27.0-31.0) 12/30/18 17:39 MCHC 32.7 g/dL (33.0-37.0) L 12/30/18 17:39 RDW 15.0 % (11.5-14.5) H 12/30/18 17:39 Plt Count 230 K/uL (130-400) 12/30/18 17:39 MPV 9.3 fL (7.2-11.7) 12/30/18 17:39 Neut % (Auto) 40.5 % (50.0-75.0) L 12/30/18 17:39 Lymph % (Auto) 46.2 % (20.0-40.0) H 12/30/18 17:39 [place] % (Auto) 8.4 % (0.0-10.0) 12/30/18 17:39 Eos % (Auto) 3.7 % (0.0-4.0) 12/30/18 17:39 Baso % (Auto) 1.2 % (0.0-2.0) 12/30/18 17:39 Neut # (Auto) 2.7 K/uL (1.8-7.0) 12/30/18 17:39 Lymph # (Auto) 3.1 K/uL (1.0-4.3) 12/30/18 17:39 [place] # (Auto) 0.6 K/uL (0.0-0.8) 12/30/18 17:39 Eos # (Auto) 0.3 K/uL (0.0-0.7) 12/30/18 17:39 Baso # (Auto) 0.1 K/uL (0.0-0.2) 12/30/18 17:39 Sodium 137 mmol/L (132-148) 12/30/18 17:39 Potassium 3.7 mmol/L (3.6-5.2) 12/30/18 17:39 Chloride 103 mmol/L (98-107) 12/30/18 17:39 Carbon Dioxide 27 mmol/L (22-30) 12/30/18 17:39 Anion Gap 11 (10-20) 12/30/18 17:39 BUN 20 mg/dL (7-17) H 12/30/18 17:39 Creatinine 1.2 mg/dL (0.7-1.2) 12/30/18 17:39 Est GFR ( Amer) 55 12/30/18 17:39 Est GFR (Non-Af Amer) 45 12/30/18 17:39 POC Glucose (mg/dL) 191 mg/dL (65-110) H 12/31/18 11:16 Random Glucose 92 mg/dL (65-105) D 12/30/18 17:39 Calcium 9.4 mg/dl (8.6-10.4) 12/30/18 17:39 Total Bilirubin 0.5 mg/dL (0.2-1.3) 12/30/18 17:39 AST 27 U/L (14-36) 12/30/18 17:39 ALT 27 U/L (9-52) 12/30/18 17:39 Alkaline Phosphatase 91 U/L (38-126) 12/30/18 17:39 Total Creatine Kinase 68 U/L (30-135) 12/31/18 04:48 CK-MB (Mass) 0.71 ng/mL (0.0-3.38) 12/31/18 04:48 Troponin I < 0.0120 ng/mL (0.00-0.120) 12/31/18 04:48 NT-Pro-B Natriuret Pep 73.3 pg/mL (0-900) 12/30/18 17:39 Total Protein 7.2 g/dL (6.3-8.3) 12/30/18 17:39 Albumin 4.3 g/dL (3.5-5.0) 12/30/18 17:39 Globulin 2.8 gm/dL (2.2-3.9) 12/30/18 17:39 Albumin/Globulin Ratio 1.5 (1.0-2.1) 12/30/18 17:39 Urine Color Straw (YELLOW) 12/30/18 17:39 Urine Clarity Clear (Clear) 12/30/18 17:39 Urine pH 5.0 (5.0-8.0) 12/30/18 17:39 Ur Specific [place] 1.009 (1.003-1.030) 12/30/18 17:39 Urine Protein Negative mg/dL (NEGATIVE) 12/30/18 17:39 Urine Glucose (UA) Normal mg/dL (Normal) 12/30/18 17:39 Urine Ketones Negative mg/dL (NEGATIVE) 12/30/18 17:39 Urine Blood Negative (NEGATIVE) 12/30/18 17:39 Urine Nitrate Negative (NEGATIVE) 12/30/18 17:39 Urine Bilirubin Negative (NEGATIVE) 12/30/18 17:39 Urine Urobilinogen Normal mg/dL (0.2-1.0) 12/30/18 17:39 Ur Leukocyte Esterase Neg Neo/uL (Negative) 12/30/18 17:39 Urine WBC (Auto) 1 /hpf (0-5) 12/30/18 17:39 Ur Squamous Epith Cells 5 /hpf (0-5) 12/30/18 17:39 Urine Bacteria Rare (<OCC) 12/30/18 17:39 Discharge Plan - Discharge Medications Prescriptions: Cyclobenzaprine [Flexeril] 10 mg PO BID PRN #60 tab PRN Reason: Muscle Spasm metFORMIN [glucOPHAGE] 500 mg PO DAILY@0800 #30 tab Temazepam [Restoril] 30 mg PO HS PRN #30 cap PRN Reason: Insomnia Simvastatin 20 mg PO HS #30 tablet Levothyroxine [Synthroid] 125 mcg PO DAILY@0630 #30 tab - Follow Up Plan Condition: FAIR Disposition: HOME/ ROUTINE Instructions: Diabetes Exchange Diet, DASH Diet, Diabetes Diet , Chest Pain (DC), Low Salt Diet, Cyclobenzaprine, Levothyroxine, Metformin, Temazepam, Hypertension (DC) Additional Instructions: Please follow up with DR. Donis office in 1 week Please continue medication as per med. rec Referrals: Zeyad Donis MD [Staff Provider] - 01/07/19 1:30 pm
--- NOTE | 2019-01-01 03:34 | DS ---
DISCHARGE DIAGNOSES: Noncoronary chest pain, type 2 diabetes, hypertension, and hyperlipidemia. HISTORY OF PRESENT ILLNESS: This is a 63-year-old female, well known to me with history of diabetes, hypertension, hyperlipidemia. She is compliant with diet, medication and followup. She has COPD. She came in because of chest pain, left precordial, dull, non-radiating, not associated with diaphoresis, dizziness. The patient was admitted. NE was ruled out by three sets of negative cardiac enzymes. Her echo is pending. She is for discharge. CONDITION UPON DISCHARGE: Stable. PLAN: She will be followed up me as an outpatient. Zeyad Donis MD
== END 2018-12-31 17:00 | disposition home or self-care (01) ==
LOC: C.ER 16:35 → C.6T 18:07
PROVIDERS: ADMIT Internal Medicine; ATTEND Internal Medicine
DX: R07.2 Precordial pain (principal); I10 Essential (primary) hypertension; E78.5 Hyperlipidemia, unspecified; E11.9 Type 2 diabetes mellitus without complications; J44.9 Chronic obstructive pulmonary disease, unspecified; F41.1 Generalized anxiety disorder; G47.00 Insomnia, unspecified; Z87.891 Personal history of nicotine dependence; Z79.84 Long term (current) use of oral hypoglycemic drugs; F32.9 Major depressive disorder, single episode, unspecified
CPT/HCPCS: 36415; 71046; 80053; 81001; 82948; 83880; 84484; 85025; 93005; 93306; 99285; G0378